=== PATIENT | female | born 1930 | race Caucasian/White ===

== ENCOUNTER 2017-06-13 18:16 | Emergency (ER) | payer MEDICARE, BC ==
[2017-06-13 19:15] LABS: #Basophils 0.1 thou/uL (0.0-0.2); #Eosinphils 0.1 thou/uL (0.0-0.7); #Lymphocytes 1.1 thou/uL (1.20-3.40); #Monocytes 0.4 thou/uL (0.11-0.59); #Neutrophils 3.4 thou/uL (1.40-6.50); %Eosinophils 1.2 % (0.0-10.0); %Lymphocytes 21.7 % (21.0-51.0); %Monocytes 7.1 % (0.0-10.0); Hematocrit 37.8 % (36.0-47.0); Mean Platelet Volume 12.6 fL (7.4-10.4); Red Blood Cell (RBC) Count 4.25 mill/uL (4.20-5.40); White Blood Cell (WBC) Count 4.9 thou/uL (4.8-10.8)
[2017-06-13 19:17] LABS: ALT (SGPT) 20 U/L (8-55); AST (SGOT) 16 U/L (5-34); Alkaline Phosphatase 48 U/L (40-150); Anion Gap 16 mmol/L (10-20); BUN (Urea Nitrogen) 25 mg/dL (9.8-20.1); Bilirubin, Total 0.3 mg/dL (0.2-1.2); Calc. Creatinine Clearance 0 mL/min (70-130); Calcium 10.9 mg/dL (7.8-10.44); Carbon Dioxide 23 mmol/L (23-31); Chloride 107 mmol/L (98-107); Estimated GFR-MDRD 40; Globulin 2.7 g/dL (2.4-3.5); Protein, Total 6.8 g/dL (6.0-8.3)
[2017-06-13 19:19] LABS: Troponin I 0.021 ng/mL (< 0.028)
[2017-06-13] MEDS ORDERED: cloNIDine 0.1 MG TAB ONE (19:44)
[2017-06-13] MEDS ORDERED: Metoprolol Tartrate 5 MG/5 ML VIAL ONE (20:03)
--- NOTE | 2017-07-03 11:39 | EKG ---
Test Reason : Blood Pressure : / mmHG Vent. Rate : 068 BPM Atrial Rate : 068 BPM P-R Int : 138 ms QRS Dur : 082 ms QT Int : 392 ms P-R-T Axes : 047 013 017 degrees QTc Int : 416 ms Normal sinus rhythm Possible Left atrial enlargement Borderline ECG Confirmed by ALFA MATTHEWS D.O. ([id number]), film and video editor KANDY FISCHER ([id number]) on 07/03/2017 11:39:18 AM Referred By: Confirmed By:ALFA MATTHEWS D.O.
== END 2017-06-13 21:20 | disposition home or self-care (01) ==
LOC: SCSER 18:16
DX: I10 Essential (primary) hypertension (principal); E05.90 Thyrotoxicosis, unspecified without thyrotoxic crisis or storm; Z79.82 Long term (current) use of aspirin; Z79.899 Other long term (current) drug therapy
CPT/HCPCS: 80053; 82553; 84484; 85025; 93005; 96374

== ENCOUNTER 2017-06-18 10:54 | Emergency (ER) | payer MEDICARE, BC | END 2017-06-18 11:55 | disposition home or self-care (01) | LOC: SCSER 10:54 | DX: I10 Essential (primary) hypertension (principal); E05.90 Thyrotoxicosis, unspecified without thyrotoxic crisis or storm; Z79.82 Long term (current) use of aspirin; Z79.899 Other long term (current) drug therapy | CPT/HCPCS: 99283 ==

== ENCOUNTER 2017-06-29 02:35 | Outpatient (CLI) | payer MEDICARE, BC | END 2017-06-29 02:36 | disposition home or self-care (01) | LOC: BICRAD 02:35 | PROVIDERS: ATTEND Internal Medicine Hematology & Oncology | DX: C65.2 Malignant neoplasm of left renal pelvis (principal) | CPT/HCPCS: 36415; 71020; 80053; 82306; 82728; 83540; 83550; 85025 ==

== ENCOUNTER 2017-09-08 10:09 | Outpatient (CLI) | payer MEDICARE, BC ==
[2017-09-08 10:16] LABS: #Basophils 0.1 thou/uL (0.0-0.2); #Eosinphils 0.1 thou/uL (0.0-0.7); #Lymphocytes 1.4 thou/uL (1.20-3.40); #Monocytes 0.3 thou/uL (0.11-0.59); %Basophils 1.9 % (0.0-1.0); %Eosinophils 1.6 % (0.0-10.0); %Lymphocytes 37.1 % (21.0-51.0); %Monocytes 8.4 % (0.0-10.0); %Neutrophils 50.9 % (42.0-75.0); Hemoglobin 12.7 g/dL (12.0-16.0); Mean Corpuscular HGB CONC 33.3 g/dL (32.0-36.0); Mean Corpuscular Hemoglobin 30.4 pg (27.0-31.0); Mean Corpuscular Volume 91.3 fl (81.0-99.0); Mean Platelet Volume 10.5 fL (7.4-10.4); Platelet Count 163 thou/uL (130-400); Red Blood Cell (RBC) Count 4.18 mill/uL (4.20-5.40); White Blood Cell (WBC) Count 3.9 thou/uL (4.8-10.8)
[2017-09-08 10:43] LABS: ALT (SGPT) 8 U/L (8-55); AST (SGOT) 8 U/L (5-34); Albumin 4.1 g/dL (3.4-4.8); Alkaline Phosphatase 44 U/L (40-150); Anion Gap 11 mmol/L (10-20); BUN (Urea Nitrogen) 63 mg/dL (9.8-20.1); Bilirubin, Total 0.3 mg/dL (0.2-1.2); Calc. Creatinine Clearance 0 mL/min (70-130); Calcium 10.5 mg/dL (7.8-10.44); Carbon Dioxide 27 mmol/L (23-31); Chloride 106 mmol/L (98-107); Estimated GFR-MDRD 24; Globulin 2.8 g/dL (2.4-3.5); Glucose 101 mg/dL (83-110); Protein, Total 6.9 g/dL (6.0-8.3); Sodium 139 mmol/L (136-145)
--- NOTE | 2017-09-08 13:50 | ULT ---
RENAL ULTRASOUND: RENAL DOPPLER: CLINICAL HISTORY: Chronic kidney disease, stage IV. Blackmon scale and Doppler color flow and spectral analysis performed. FINDINGS: Incidental note of a distended gallbladder with cholelithiasis, incompletely evaluated. There is mil d to moderate right-sided hydronephrosis. Small right renal cyst is present. Otherwise, no obvious right renal lesion is seen. The left kidney is absent. The urinary bladder is mildly distended, sow iting assessment. Right renal Doppler reveals a normal renal artery to aorta ratio, a renal artery velocity of 26 cm/s, and RI of 0.5. IMPRESSION: 1. Mild to moderate right-sided hydronephrosis of indeterminate etiology on the basis of this exam. Correlate clinically. 2. Distended gallbladder with cholelithiasis, incompletely visualized. Recommend dedicated imaging with gallbladder ultrasound to further evaluate. 3. Normal right renal Doppler exam. POS: [facility]
== END 2017-09-08 10:10 | disposition home or self-care (01) ==
LOC: ULT 10:09
PROVIDERS: ATTEND Family Medicine
DX: I12.9 Hypertensive chronic kidney disease with stage 1 through stage 4 chronic kidney disease, or unspecified chronic kidney disease (principal); N18.4 Chronic kidney disease, stage 4 (severe); N13.30 Unspecified hydronephrosis; K80.20 Calculus of gallbladder without cholecystitis without obstruction; K82.8 Other specified diseases of gallbladder; I35.8 Other nonrheumatic aortic valve disorders
CPT/HCPCS: 76775; 80053; 85025; 93976

== ENCOUNTER 2017-12-07 07:51 | Outpatient (CLI) | payer MEDICARE, BC ==
--- NOTE | 2017-12-07 18:40 | NM ---
NUCLEAR MEDICINE RENOGRAM WITH LASIX 12/07/17 HISTORY: 87-year-old female status post left nephrectomy with chronic renal insufficiency. UPJ obstruction. COMPARISON: Renal ultrasound 09/08/17. TECHNIQUE: A nuclear medicine renal scan was performed after the administration of 7.5 millicuries of technetium 99m MAG3. Lasix was also given for this examination. No uptake is seen overlying the left renal shadow as the patient is status post left nephrectomy. Upt nestor is seen overlying the right renal shadow. The right renal curve is abnormal and delayed. Time pea k is 2.4 minutes. T1/2 max could not be calculated as greater than 50% washout was not seen at the co mpletion of the study at 50 minutes. There is radiopharmaceutical seen within the kidney, ureter, and urinary bladder. No definite washout is seen. IMPRESSION: Abnormal renogram of the right kidney. There is no evidence of washout at this time to suggest a part ial obstruction. POS: [facility]
== END 2017-12-07 07:52 | disposition home or self-care (01) ==
LOC: NM 07:51
PROVIDERS: ATTEND Urology
DX: C64.2 Malignant neoplasm of left kidney, except renal pelvis (principal); I12.9 Hypertensive chronic kidney disease with stage 1 through stage 4 chronic kidney disease, or unspecified chronic kidney disease; N18.3 Chronic kidney disease, stage 3 (moderate); N13.5 Crossing vessel and stricture of ureter without hydronephrosis; N13.39 Other hydronephrosis; Q63.8 Other specified congenital malformations of kidney; R93.421 Abnormal radiologic findings on diagnostic imaging of right kidney
CPT/HCPCS: 78708; A4641; A9562

== ENCOUNTER 2017-12-08 11:34 | Outpatient (CLI) | payer MEDICARE, BC ==
[2017-12-08 12:54] LABS: Hemoglobin 11.3 g/dL (12.0-16.0); Mean Corpuscular HGB CONC 33.3 g/dL (32.0-36.0); Mean Corpuscular Hemoglobin 30.7 pg (27.0-31.0); Mean Corpuscular Volume 92.4 fl (81.0-99.0); Mean Platelet Volume 10.1 fL (7.4-10.4); Platelet Count 173 thou/uL (130-400); RBC Distribution Width 11.9 % (11.5-14.5); Red Blood Cell (RBC) Count 3.69 mill/uL (4.20-5.40); White Blood Cell (WBC) Count 4.8 thou/uL (4.8-10.8)
[2017-12-08 13:02] LABS: INR-International Normal Ratio 1.1
[2017-12-08 13:03] LABS: PTT 31.5 SEC (22.9-36.1)
[2017-12-08 13:11] LABS: Anion Gap 14 mmol/L (10-20); BUN (Urea Nitrogen) 63 mg/dL (9.8-20.1); Calc. Creatinine Clearance 0 mL/min (70-130); Calcium 10.4 mg/dL (7.8-10.44); Carbon Dioxide 25 mmol/L (23-31); Chloride 106 mmol/L (98-107); Estimated GFR-MDRD 19; Glucose 107 mg/dL (83-110); Sodium 140 mmol/L (136-145)
[2017-12-08 13:35] LABS: Bilirubin Small (Negative); Blood, Urine Negative (Negative); Clarity CLEAR (Clear); Glucose, Urine (Dipstick) Negative (Negative); Leukocyte Negative (Negative); Nitrite Negative (Negative); Protein, Urine (Dipstick) Negative (Neg-Trace); pH, Urine 5.5 (5.0-9.0)
[2017-12-08 13:43] LABS: Bacteria/HPF None Seen HPF (None Seen); Hyaline Casts/LPF 4-6 HYALINE CAST LPF (0-3 Hyaline); Pathc Cast-AUWi Flag 1.16 (0-2.49); RBC/HPF 0-3 HPF (0-3); Squamous Epithelial 0-3 HPF (0-3); WBC/HPF 0-3 HPF (0-3)
== END 2017-12-08 11:35 | disposition home or self-care (01) ==
LOC: LABBT 11:34
PROVIDERS: ATTEND Urology
DX: Z01.818 Encounter for other preprocedural examination (principal); Q63.8 Other specified congenital malformations of kidney
CPT/HCPCS: 80048; 81001; 85027; 85610; 85730; 93005; 93010

== ENCOUNTER 2017-12-10 08:02 | Outpatient (CLI) | payer MEDICARE, BC ==
[~2017-12-10 08:02] MED LIST: Furosemide 40 MG/4 ML VIAL ONE
--- NOTE | 2017-12-10 08:47 | RAD ---
CHEST 2 VIEWS: Date: 12/10/17 HISTORY: Renal cell carcinoma. Chronic renal insufficiency. COMPARISON: None. FINDINGS: Lungs are slightly hyperinflated. No focal air space consolidation, pneumothorax, or effusion. No acu te osseous abnormality. Mild degenerative disease of the glenohumeral joints bilaterally. Scarring in the lung apices. IMPRESSION: No acute intrathoracic abnormality. POS: [facility]
--- NOTE | 2017-12-10 10:15 | CT ---
CT ABDOMEN AND PELVIS WITHOUT CONTRAST: HISTORY: Hydronephrosis. Chronic kidney disease. The patient had left renal cancer and is post nephrectomy. COMPARISON: 11/11/2009 FINDINGS: Absence of oral and IV contrast reduce the sensitivity of the exam, particular for evaluation of ciro ds organs involved. The lung bases are clear. The gallbladder is distended with suggestion of gallbladder sludge versus calculi. No free air or free fluid is seen in the abdomen or pelvis. The patient is post left nephr ectomy, appendectomy, and hysterectomy. No calculi are seen in the right kidney, right ureter, or urinary bladder. No right-sided hydrourete ronephrosis is identified. A dense lesion in the right kidney likely represents a cyst. The re is colonic diverticulosis without evidence of diverticulitis. Vascular calcifications are present without evidence of aneurysmal dilatation of the abdominal aorta. There are degenerative changes in the spine. IMPRESSION: 1. Status post nephrectomy. No evidence of right-sided urinary tract calculi or obstruction. 2. Colonic diverticulosis. 3. Distended gallbladder with probable sludge/gallstones. A gallbladder ultrasound would be helpful . POS: [facility]
== END 2017-12-10 08:03 | disposition home or self-care (01) ==
LOC: CT 08:02
PROVIDERS: ATTEND Urology
DX: C64.2 Malignant neoplasm of left kidney, except renal pelvis (principal); N18.3 Chronic kidney disease, stage 3 (moderate); N13.1 Hydronephrosis with ureteral stricture, not elsewhere classified; K57.30 Diverticulosis of large intestine without perforation or abscess without bleeding; K82.8 Other specified diseases of gallbladder; Q63.8 Other specified congenital malformations of kidney; Z90.5 Acquired absence of kidney
CPT/HCPCS: 71046; 74176; J1940

== ENCOUNTER 2017-12-15 06:01 | Day surgery (SDC) | payer MEDICARE, BC ==
[2017-12-08 11:49] VITALS: BMI 22.9
[2017-12-15] MEDS ORDERED: Iothalamate Meglumine 60% 50 ML VIAL FS ONE (06:34)
[2017-12-15] MEDS ORDERED: Fentanyl 100 MCG/2 ML VIAL ONE (06:58)
[2017-12-15] MEDS ORDERED: Levofloxacin 500 mg/D5W 100 ml Premix Bag ONE (07:09)
[2017-12-15] MEDS ORDERED: Oxybutynin 5 MG TAB ONE (09:31)
[2017-12-15] MEDS ORDERED: Phenazopyridine HCl 97.5 MG TABLET ONE (09:31)
--- NOTE | 2017-12-15 09:41 | OP ---
DATE OF PROCEDURE: 12/15/2017 PREOPERATIVE DIAGNOSES: 1. A 87-year-old female with history of left radical nephrectomy at [facility] in 2009. 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 2. History of right hydronephrosis, r/o R UPJ 3. Renal insufficiency. POSTOPERATIVE DIAGNOSES: 1. A 87-year-old female with history of left radical nephrectomy at [facility] in 2009. 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 2. History of right hydronephrosis, R/o R UPJ 3. Renal insufficiency. PROCEDURES: Cystoscopy, right retrograde, 6 x 24 double-J ureteral stent placement, balloon dilation of the distal intramural ureter, balloon dilation of the right UPJ, flexible ureteroscopy. SURGEON: Gisele Smith D.O. ANESTHESIA: General. COMPLICATIONS: None apparent. DISPOSITION: To recovery room in stable condition. INTRAOPERATIVE FINDINGS: 1. Bladder is grossly unremarkable. 2. left UO remains in situ status post left nephrectomy, right UO in normal orthotopic position. 3. Right retrograde pyelogram demonstrating dependent insertion of the UPJ with subtle narrowing of the proximal ureter UPJ approximately 2 cm in length. 4. Retrograde pyelogram does demonstrate efflux of urine at 45seconds, 1 minute , 2 minutes, demonstrating delayed excretion; however, no high-grade obstruction per se. 5. Prior renal scan demonstrated partial obstruction and T1 half could not be calculated as greater than 50% at one shot was not seen at 50 minutes. INDICATIONS FOR THE PROCEDURE AND HISTORY: Ms. Burdick is a pleasant 85-year- old female with history of left renal cell carcinoma, status post left hand- assisted nephrectomy at [facility] [address] Dejesus. She was referred to me recently by Nephrology due to worsening renal insufficiency with renal ultrasound demonstrating moderate right hydronephrosis. Upon review of records , she does have chronic right hydronephrosis dating back to [id number] and imaging at [facility]. She has been asymptomatic with no evidence of flank pain. Her baseline creatinine has been 1.1-1.5; however, this year, beginning in August, her creatinine began to be elevated to 2.0, currently 2.4. Restaging CT demonstrated no obvious hydronephrosis, but there is an extrarenal pelvic component with nondilation of the ureter. Given prior imaging with similar findings demonstrating extrarenal pelvis with [id number] right hydronephrosis with Lasix renal scan demonstrating delayed excretion and solitary kidney, advised regarding retrograde, balloon dilatation, diagnostic ureteroscopy. The patient has been fully informed regarding alternative options such as endopyelotomy, dismembered pyeloplasty. She desired to proceed with diagnostic ureteroscopy and trial of balloon dilatation. The patient was fully informed regarding risks and complications including, but not limited to, bleeding, pain, infection, injury to adjacent organs, injury to ureter, bladder , kidney, sepsis, stricture formation, renal failure. All questions were answered to her satisfaction, she desired to proceed. DESCRIPTION OF THE PROCEDURE: After an informed consent is signed, the patient is taken to the operating room, placed in a dorsal lithotomy position with the genital area prepped and draped in the usual surgical sterile fashion. A 21- [place]e cystoscope was utilized for cystoscopy which demonstrated normal bladder mucosa. The left UO remains in situ status post left nephrectomy. Right UO was in normal anatomical position. We utilized a 5-Senegalese open-ended catheter to perform a retrograde pyelogram which demonstrated normal mid to distal ureter. Opacifying the right collecting system, there is a component of extra renal pelvis with mild clubbing of the calices. At the level of the UPJ, there is a dependent insertion of the UPJ with subtle narrowing of the UPJ segment approximately 2 cm in length. We filled the collecting system with contrast and watched for efflux. There was adequate efflux at 45seconds, 60 seconds, minute and 2 minutes. We were able to see the contrast coming down the course of the ureter and effluxing through the ureter orifice. We then passed a 0.35 sensor wire. There was some resistance at the level of the UPJ; however, this was negotiated into the right upper pole without difficulty. At this time, we passed 12-Senegalese 2 cm [employer] dilator and dilated the intramural ureter. Subsequently, a 10-[place]e dual-lumen access sheath was able to be passed to the level of the proximal ureter. With the wire in situ, the ureter did have more straight insertion in the towards the medial aspect, a second safety wire, 0.35 Super Stiff was able to be passed to the level of the right upper pole. We passed a flexible ureteroscope. Upon engaging the area in question, there appeared to be narrowing that was annular in nature. I was unable to pass the flexible ureteroscope. I tried to utilize a passport dilator under direct visualization to dilate the UPJ; however, we had difficulty passing the proximal coil as there was tortuosity and corkscrewing of the proximal ureter. Therefore, I did not pursue dilating it in such manner. As I do have a wire in situ, we passed the [employer] balloon dilator and she was dilated under fluoroscopic guidance. The proximal portion of the balloon dilator radial marker was seen in the renal pelvis. Distal marker with adequate coverage of the length of the ureteral narrowing in question. Balloon dilatation was performed with 20 atmospheric pressure. Subsequently, the balloon was completely deflated. We attempted to pass the ureteroscope over a guidewire to restage the area; however, there was difficulty passing the safety wire subsequently. Therefore, decision was made to leave a stent as she was dilated successfully. There was some pyelovenous backflow with subsequent retrograde. A 6 x 24 double-J ureteral stent was passed without difficulty with proximal coil in the upper pole and distal coil with adequate redundancy in the bladder. Distal tail was left in situ. She tolerated the procedure well. She will follow up with me in the next week with KUB, BMP. I will leave the stent in situ for minimum of 3-4 weeks. I will discuss with patient regarding repeat exam under anesthesia with retrograde prior to her stent pull as I am unable to perform an IVP due to renal insufficiency. We will discuss with patient regarding repeat exam under anesthesia for ureteroscopic evaluation of the area in question as we were unable to perform that today. Medication list demonstrates she is on an angiotensin 2 inhibitor, we will discuss with her technology and engineering teacher if alternative medication can be provided as she does have baseline renal insufficiency. TEA
--- NOTE | 2017-12-15 10:33 | RAD ---
RETROGRADE PYELOGRAM: CKD Hydronephrosis FINDINGS: No evidence for ureteral calculus. Dilatation of the right upper renal pelvis with decreased drainag e on the post drainage studies. Instrumentation of the upper left ureter and ureteropelvic junction is performed. IMPRESSION: Dilatation of the right upper renal collecting system and renal pelvis, possibly related to UPJ obstr uction, mild. No overt calculus. Continued short-term followup. POS: [facility]
[2017-12-15] MEDS ORDERED: Dexamethasone 20 MG/5 ML VIAL ONE (14:16)
[2017-12-15] MEDS ORDERED: Ondansetron HCl/PF 4 MG/2 ML Vial ONE (14:16)
[2017-12-15] MEDS ORDERED: Glycopyrrolate 0.2 MG/ML 5 ML SYRINGE ONE (14:16)
[2017-12-15] MEDS ORDERED: Lidocaine 1% PF 5 ML VIAL ONE (14:16)
[2017-12-15] MEDS ORDERED: PROPOFOL 200 MG/20 ML VIAL ONE (14:16)
[2017-12-15] MEDS ORDERED: ePHEDrine/0.9% NaCl/PF SYRINGE 50 mg/10 ml ONE (14:16)
== END 2017-12-15 11:10 | disposition home or self-care (01) ==
LOC: SDC 06:01
PROVIDERS: ATTEND Urology
PROC: 0T768DZ Dilation of Right Ureter with Intraluminal Device, Via Natural or Artificial Opening Endoscopic (ICD-10-PCS; principal; 2017-12-15)
DX: N13.1 Hydronephrosis with ureteral stricture, not elsewhere classified (principal); I12.9 Hypertensive chronic kidney disease with stage 1 through stage 4 chronic kidney disease, or unspecified chronic kidney disease; N18.3 Chronic kidney disease, stage 3 (moderate); E78.2 Mixed hyperlipidemia; E21.0 Primary hyperparathyroidism; F41.9 Anxiety disorder, unspecified; M81.8 Other osteoporosis without current pathological fracture; Z90.5 Acquired absence of kidney; Z88.8 Allergy status to other drugs, medicaments and biological substances; Z79.899 Other long term (current) drug therapy
CPT/HCPCS: 52332; 52351; 74420; C1758; C1769; J1100; J1956; J2001; J2405; J2704; J3010; Q9961

== ENCOUNTER 2017-12-22 09:08 | Outpatient (CLI) | payer MEDICARE, BC ==
--- NOTE | 2017-12-22 10:22 | RAD ---
KUB: HISTORY: Placement or ureteral stent. Dilatation of right collecting system. COMPARISON: Retrograde examination from 12/15/[address] study from 12/10/2017. FINDINGS: The bowel gas pattern appears nonobstructed. A right ureteral stent is in position. No renal or ure teral calculi are identified. IMPRESSION: 1. Right ureteral stent, which appears to be in fairly satisfactory position. 2. No calculi demonstrated. POS: [facility]
== END 2017-12-22 09:09 | disposition home or self-care (01) ==
LOC: RAD 09:08
PROVIDERS: ATTEND Urology
DX: R93.41 Abnormal radiologic findings on diagnostic imaging of renal pelvis, ureter, or bladder (principal); Z96.0 Presence of urogenital implants
CPT/HCPCS: 74018

== ENCOUNTER 2018-01-20 11:51 | Outpatient (CLI) | payer MEDICARE, BC ==
--- NOTE | 2018-01-20 14:44 | RAD ---
KUB: DATE: 01/20/18. PROVIDED CLINICAL HISTORY: EPJ obstruction. FINDINGS: The abdominal bowel gas pattern is nonspecific. Conspicuous colonic fecal retention suggests constip ation. Right-sided ureteral stent is again noted in similar position. Calcifications overlying the pelvis are again seen, stable. IMPRESSION: Stable exam. POS: [facility]
== END 2018-01-20 11:52 | disposition home or self-care (01) ==
LOC: RAD 11:51
PROVIDERS: ATTEND Urology
DX: N13.5 Crossing vessel and stricture of ureter without hydronephrosis (principal)
CPT/HCPCS: 36415; 74018; 80048; 80061; 82306; 83970; 84443; 84450; 84460; 85027; 85652

== ENCOUNTER 2018-02-21 13:06 | Outpatient (CLI) | payer MEDICARE, BC ==
[2018-02-21 14:14] LABS: Hemoglobin 11.6 g/dL (12.0-16.0); Mean Corpuscular HGB CONC 33.7 g/dL (32.0-36.0); Mean Corpuscular Volume 92.2 fL (78.0-98.0); Mean Platelet Volume 9.6 fL (7.4-10.4); Platelet Count 175 thou/uL (130-400); RBC Distribution Width 11.8 % (11.5-14.5); Red Blood Cell (RBC) Count 3.72 mill/uL (4.20-5.40); White Blood Cell (WBC) Count 4.4 thou/uL (4.8-10.8)
[2018-02-21 14:21] LABS: INR-International Normal Ratio 1.1; PTT 28.9 SEC (22.9-36.1); Prothrombin Time 14.1 SEC (12.0-14.7)
[2018-02-21 14:22] LABS: Bilirubin Negative (Negative); Blood, Urine Moderate (Negative); Clarity CLOUDY (Clear); Glucose, Urine (Dipstick) Negative (Negative); Leukocyte Moderate (Negative); Nitrite Positive (Negative); Protein, Urine (Dipstick) 100 mg/dL (Neg-Trace); Urobilinogen 0.2 mg/dL (0.2-1.0); pH, Urine 5.5 (5.0-9.0)
[2018-02-21 14:27] LABS: Bacteria/HPF None Seen HPF (None Seen); Hyaline Casts/LPF 4-6 HYALINE CAST LPF (0-3 Hyaline); Pathc Cast-AUWi Flag 0.87 (0-2.49); WBC/HPF 21-50 HPF (0-3)
[2018-02-21 14:34] LABS: Yeast-AUWi Flag 63.5 (0-25.0)
[2018-02-21 14:40] LABS: Anion Gap 7 mmol/L (10-20); BUN (Urea Nitrogen) 29 mg/dL (9.8-20.1); Calc. Creatinine Clearance 0 mL/min (70-130); Calcium 10.4 mg/dL (7.8-10.44); Carbon Dioxide 26 mmol/L (23-31); Chloride 110 mmol/L (98-107); Estimated GFR-MDRD 35; Glucose 96 mg/dL (83-110); Potassium 4.4 mmol/L (3.5-5.1); Sodium 139 mmol/L (136-145)
[2018-02-21 14:50] LABS: Renal Epithelial 0-3 HPF (0-3); Transitional Epithelial 0-3 HPF (0-3); Yeast-All Forms None Seen HPF (None Seen)
--- NOTE | 2018-02-22 07:08 | EKG ---
Test Reason : Blood Pressure : / mmHG Vent. Rate : 057 BPM Atrial Rate : 057 BPM P-R Int : 134 ms QRS Dur : 078 ms QT Int : 416 ms P-R-T Axes : 083 040 036 degrees QTc Int : 404 ms Sinus bradycardia with artifact in baseline in Leads I, II, III. Possible Left atrial enlargement RSR' or QR pattern in V1 suggests right ventricular conduction delay Low voltage QRS Borderline ECG When compared with ECG of 08-DEC-2017 12:28, No significant change was found Confirmed by ASHLEIGH GONZALEZ ([id number]) on 02/22/2018 7:07:46 AM Referred By: TARSHA Confirmed By:ASHLEIGH GONZALEZ
== END 2018-02-21 13:07 | disposition home or self-care (01) ==
LOC: LABBT 13:06
PROVIDERS: ATTEND Urology
DX: Z01.812 Encounter for preprocedural laboratory examination (principal); N13.30 Unspecified hydronephrosis
CPT/HCPCS: 80048; 81001; 85027; 85610; 85730; 87077; 87086; 87186; 93005; 93010

== ENCOUNTER 2018-03-17 15:01 | Outpatient (CLI) | payer MEDICARE, BC | END 2018-03-17 15:02 | disposition home or self-care (01) | LOC: BICMAMMO 15:01 | PROVIDERS: ATTEND Internal Medicine Hematology & Oncology | DX: Z12.31 Encounter for screening mammogram for malignant neoplasm of breast (principal); Z80.3 Family history of malignant neoplasm of breast; Z85.528 Personal history of other malignant neoplasm of kidney | CPT/HCPCS: 77063; 77067 ==

== ENCOUNTER 2018-05-03 16:28 | Emergency (ER) | payer MEDICARE, BC | END 2018-05-03 16:58 | disposition home or self-care (01) | LOC: SCSER 16:28 | DX: I10 Essential (primary) hypertension (principal); E03.9 Hypothyroidism, unspecified; Z79.899 Other long term (current) drug therapy | CPT/HCPCS: 93005 ==

== ENCOUNTER 2018-08-06 20:40 | Emergency (ER) | payer MEDICARE, BC ==
[2018-08-06 21:22] LABS: #Basophils 0.1 thou/uL (0.0-0.2); #Lymphocytes 1.1 thou/uL (1.20-3.40); #Monocytes 0.3 thou/uL (0.11-0.59); #Neutrophils 2.6 thou/uL (1.40-6.50); %Basophils 1.2 % (0.0-1.0); %Eosinophils 1.1 % (0.0-10.0); %Lymphocytes 25.7 % (21.0-51.0); %Monocytes 8.1 % (0.0-10.0); %Neutrophils 63.9 % (42.0-75.0); Hemoglobin 11.7 g/dL (12.0-16.0); Mean Corpuscular Hemoglobin 29.1 pg (27.0-31.0); Mean Corpuscular Volume 88.4 fL (78.0-98.0); Mean Platelet Volume 10.6 fL (7.4-10.4); Platelet Count 167 thou/uL (130-400); RBC Distribution Width 12.5 % (11.5-14.5); Red Blood Cell (RBC) Count 4.03 mill/uL (4.20-5.40); White Blood Cell (WBC) Count 4.1 thou/uL (4.8-10.8)
[2018-08-06 21:28] LABS: Anion Gap 13 mmol/L (10-20); BUN (Urea Nitrogen) 26 mg/dL (9.8-20.1); Calc. Creatinine Clearance 0 mL/min (70-130); Calcium 10.5 mg/dL (7.8-10.44); Carbon Dioxide 25 mmol/L (23-31); Chloride 108 mmol/L (98-107); Estimated GFR-MDRD 36; Glucose 106 mg/dL (83-110); Potassium 4.4 mmol/L (3.5-5.1); Sodium 142 mmol/L (136-145)
== END 2018-08-06 21:44 | disposition home or self-care (01) ==
LOC: SCSER 20:40
DX: I10 Essential (primary) hypertension (principal); E05.90 Thyrotoxicosis, unspecified without thyrotoxic crisis or storm; Z79.899 Other long term (current) drug therapy
CPT/HCPCS: 80048; 84484; 85025; 93005

== ENCOUNTER 2018-10-03 09:55 | Outpatient (CLI) | payer MEDICARE, BC ==
--- NOTE | 2018-10-03 12:00 | RAD ---
FRONTAL AND LATERAL IMAGING CHEST: DATE: 10/03/2018. COMPARISON: None. HISTORY: Renal cell carcinoma of the left kidney. FINDINGS: No pneumothorax, pleural fluid, lobar consolidation, or alveolar edema. Heart and mediastinal contou rs are unremarkable. There is atherosclerotic calcification in the aortic arch. There is mild incre ased linear interstitial density with pulmonary hyperinflation suggesting air trapping, stable. IMPRESSION: Stable appearance of the chest - no acute findings. POS: [facility]
== END 2018-10-03 09:56 | disposition home or self-care (01) ==
LOC: RAD 09:55
PROVIDERS: ATTEND Urology
DX: C64.2 Malignant neoplasm of left kidney, except renal pelvis (principal); N18.3 Chronic kidney disease, stage 3 (moderate); N13.5 Crossing vessel and stricture of ureter without hydronephrosis
CPT/HCPCS: 36415; 71046; 80053; 81001; 87086

== ENCOUNTER 2019-04-20 15:02 | Outpatient (CLI) | payer MEDICARE, BC ==
--- NOTE | 2019-04-20 16:24 | MMO ---
Bilateral MAMMO Bilat Screen DDI+ANDRZEJ. CLINICAL HISTORY: Patient is 88 years old and is seen for screening. The patient has no family history of breast cancer. The patient has a history of kidney cancer at age 80. VIEWS: The views performed were: bilateral craniocaudal with tomosynthesis and bilateral mediolateral oblique with tomosynthesis. FILMS COMPARED: The present examination has been compared to prior imaging studies performed at [facility] on 10/16/2014, 02/12/2016, 02/19/2017 and 03/17/2018. This study has been interpreted with the assistance of computer-aided detection. MAMMOGRAM FINDINGS: There are scattered fibroglandular densities. Benign calcifications are noted bilaterally. There are no suspicious masses, suspicious calcifications, or new areas of architectural distortion. IMPRESSION: THERE IS NO MAMMOGRAPHIC EVIDENCE OF MALIGNANCY. A ROUTINE FOLLOW-UP MAMMOGRAM IN 1 YEAR IS RECOMMENDED. THE RESULTS OF THIS EXAM WERE SENT TO THE PATIENT. ACR BI-RADS Category 2 - Benign finding MAMMOGRAPHY NOTE: 1. A negative mammogram report should not delay a biopsy if a dominant of clinically suspicious mass is present. 2. Approximately 10% to 15% of breast cancers are not detected by mammography. 3. Adenosis and dense breasts may obscure an underlying neoplasm. Reported by: TALHA YANG MD Electonically Signed: [id number]
== END 2019-04-20 15:03 | disposition home or self-care (01) ==
LOC: BICMAMMO 15:02
PROVIDERS: ATTEND Internal Medicine Hematology & Oncology
DX: Z12.31 Encounter for screening mammogram for malignant neoplasm of breast (principal); Z85.528 Personal history of other malignant neoplasm of kidney
CPT/HCPCS: 77063; 77067

== ENCOUNTER 2019-06-14 14:41 | Outpatient (CLI) | payer MEDICARE, BC ==
--- NOTE | 2019-06-14 16:41 | RAD ---
CHEST TWO VIEWS: HISTORY: Renal cell carcinoma left kidney. COMPARISON: 10/03/2018 FINDINGS: The lungs appear clear of infiltrate. Interstitial markings are upper normal but are probably stable, given differences in technique. Heart size is upper normal and stable. Aortic calcification is again noted. Osseous structures are unremarkable with mild degenerative change. IMPRESSION: Stable chest findings. POS: [facility]
== END 2019-06-14 14:42 | disposition home or self-care (01) ==
LOC: BICRAD 14:41
PROVIDERS: ATTEND Internal Medicine Hematology & Oncology
DX: C65.2 Malignant neoplasm of left renal pelvis (principal)
CPT/HCPCS: 71046

== ENCOUNTER 2019-07-11 09:41 | Emergency (ER) | payer MEDICARE, BC ==
[2019-07-11 11:35] LABS: #Eosinphils 0.1 thou/uL (0.0-0.7); #Lymphocytes 0.7 thou/uL (1.20-3.40); #Monocytes 0.5 thou/uL (0.11-0.59); #Neutrophils 3.3 thou/uL (1.40-6.50); %Basophils 0.4 % (0.0-1.0); %Eosinophils 1.5 % (0.0-10.0); %Lymphocytes 14.9 % (21.0-51.0); %Neutrophils 73.3 % (42.0-75.0); Hemoglobin 11.4 g/dL (12.0-16.0); Mean Corpuscular HGB CONC 33.3 g/dL (32.0-36.0); Mean Corpuscular Hemoglobin 30.5 pg (27.0-31.0); Mean Corpuscular Volume 91.5 fL (78.0-98.0); Mean Platelet Volume 9.6 fL (7.4-10.4); Platelet Count 235 thou/uL (130-400); RBC Distribution Width 12.6 % (11.5-14.5); Red Blood Cell (RBC) Count 3.75 mill/uL (4.20-5.40); White Blood Cell (WBC) Count 4.6 thou/uL (4.8-10.8)
[2019-07-11 12:00] LABS: ALT (SGPT) 237 U/L (8-55); AST (SGOT) 67 U/L (5-34); Albumin 3.6 g/dL (3.4-4.8); Alkaline Phosphatase 782 U/L (40-110); Anion Gap 14 mmol/L (10-20); BUN (Urea Nitrogen) 31 mg/dL (9.8-20.1); Bilirubin, Total 0.6 mg/dL (0.2-1.2); Calc. Creatinine Clearance 0 mL/min (70-130); Calcium 10.8 mg/dL (7.8-10.44); Carbon Dioxide 23 mmol/L (23-31); Chloride 105 mmol/L (98-107); Estimated GFR-MDRD 29; Globulin 2.6 g/dL (2.4-3.5); Glucose 116 mg/dL (83-110); Potassium 4.6 mmol/L (3.5-5.1); Protein, Total 6.2 g/dL (6.0-8.3); Sodium 137 mmol/L (136-145)
== END 2019-07-11 13:16 | disposition home or self-care (01) ==
LOC: ERS 09:41
DX: R00.2 Palpitations (principal); I10 Essential (primary) hypertension; Z79.899 Other long term (current) drug therapy
CPT/HCPCS: 36415; 80053; 84443; 84484; 85025; 93005

== ENCOUNTER 2019-07-19 10:25 | Inpatient (IN) | payer MEDICARE, BC ==
[2019-07-18 17:16] VITALS: BMI 23.1
[~2019-07-19 10:25] MED LIST changes: -Furosemide 40 MG/4 ML VIAL ONE; +Ondansetron PF 4 MG/2 ML Vial ONE; +PROPOFOL 200 MG/20 ML VIAL ONE; +Succinylcholine Chloride 20 MG/ML 10 ml SYRINGE FS ONE
[2019-07-19] MEDS ORDERED: Fentanyl 100 MCG/2 ML VIAL ONE ×3 (13:08→14:43)
[2019-07-19] MEDS ORDERED: Morphine 4 MG/ML VIAL ONE (14:18)
[2019-07-19] MEDS ORDERED: Senokot S 8.6-50 MG TAB PO PRN (14:31)
[2019-07-19] MEDS ORDERED: Ondansetron PF 4 MG/2 ML Vial IVP PRN (14:31)
[2019-07-19] MEDS ORDERED: Promethazine HCl 25 MG/ML VIAL SLOW IVP PRN (14:42)
[2019-07-19] MEDS ORDERED: Morphine Sulfate 2 MG/ML SYRINGE SLOW IVP PRN (14:42)
[2019-07-19] MEDS ORDERED: Promethazine HCl 25 MG/ML VIAL IM PRN (14:42)
[2019-07-19] MEDS ORDERED: Ondansetron HCl/PF 4 MG/2 ML Vial IVP PRN (14:42)
[2019-07-19] MEDS ORDERED: Ibuprofen 200 MG TAB PO SCH ×2 (14:45→22:00)
--- NOTE | 2019-07-19 14:48 | RAD ---
Exam: Chest one view HISTORY:Pericardial window Comparison: 06/14/2019 FINDINGS: Cardiac silhouette:Normal cardiac silhouette. There does appear to be a catheter projecting over the cardiac silhouette, compatible with patient's history of pericardial window. Aorta: Atherosclerosis of the aortic knob Pulmonary vessels: Normal Costophrenic angles: No obvious pleural effusion. LUNGS: Chronic lung parenchymal changes. No consolidation or mass Pneumothorax: None Osseous abnormalities: None IMPRESSION: Catheter projects over the left cardiac silhouette compatible with patient's reported his tory of pericardial window.
[2019-07-19] MEDS ORDERED: Promethazine HCl 25 MG/ML VIAL ONE (14:54)
[2019-07-19 14:55] LABS: RBC Count-Automated (BF) 396996 /cumm; WBC/Nucleated-Auto (BF) 21659 uL
[2019-07-19 15:21] LABS: BF Color Red; Body Fluid Source Pericardial Fluid; Clarity Cloudy/Turbid (Clear); Tube # EDTA
[2019-07-19 15:42] LABS: Cell Count Non Hematic 94 %; Lymphocytes 6 %
[2019-07-19] MEDS: cloNIDine 0.1 MG TAB PO SCH (21:33)
[2019-07-20] MEDS: Enoxaparin Sodium 30 MG/0.3 ML SYRINGE SC SCH (08:08)
[2019-07-20] MEDS: cloNIDine 0.1 MG TAB PO SCH (08:09)
--- NOTE | 2019-07-20 08:48 | OP ---
DATE OF PROCEDURE: 07/19/2019 PREOPERATIVE DIAGNOSIS: Pericardial effusion. POSTOPERATIVE DIAGNOSIS: Pericardial effusion. PROCEDURE PERFORMED: Subxiphoid pericardial window. ANESTHESIA: General. ESTIMATED BLOOD LOSS: Minimal. FINDINGS: The patient had about 450 to 500 mL of bloody fluid. There was a granular appearance to the cardiac surface, but the pericardial surface in the parietal pericardium appeared smooth. DESCRIPTION OF PROCEDURE: After adequate anesthesia had been obtained, an incision was made over the xiphoid process and carried down to the xiphoid process, which was divided in the midline. Blunt dissection was used to get up to the level of the diaphragm and a Kittner was then used to retract to allow exposure of the pericardium. The Kittner penetrated the thin peritoneal cavity exposing the dome of the liver. Further dissection allowed entrance into the pericardium, where pericardial biopsy was obtained after fluid was removed for specimens. Following this, a 19 Don drain was placed into the pericardial cavity through a separate incision. The fascia was then closed as were the subcutaneous tissue and skin. The patient was to be taken to the recovery room. Job ID: [id number]
[2019-07-20] MEDS: traMADol HCl 50 MG TAB PO PRN (20:34)
[2019-07-20] MEDS ORDERED: Melatonin 3 MG TAB PO PRN (23:19)
[2019-07-21] MEDS: Acetaminophen 325 MG TAB PO PRN ×2 (02:01→13:59)
[2019-07-21] MEDS: Enoxaparin Sodium 30 MG/0.3 ML SYRINGE SC SCH (08:42)
[2019-07-21] MEDS: traMADol HCl 50 MG TAB PO PRN (14:00)
[2019-07-21] MEDS ORDERED: cloNIDine 0.2mg/24 Hour PATCH TD SCH (14:15)
[2019-07-21] MEDS ORDERED: traMADol HCl 50 MG TAB PO PRN (14:46)
--- NOTE | 2019-07-21 16:43 | ULT ---
BILATERAL LOWER EXTREMITY VENOUS ULTRASOUND WITH DOPPLER: 07/21/19 HISTORY: Pain. Lymphoma. COMPARISON: None. TECHNIQUE: Blackmon scale, color flow, Doppler imaging with spectral waveform analysis performed in the left and rig ht lower extremity venous system. FINDINGS: Bilaterally, there is compressibility, presence of flow and augmentation in the common femoral vein, femoral vein and popliteal vein. There is flow in bilateral greater saphenous vein, profunda femoral vein, and posterior tibial veins. IMPRESSION: No evidence of thrombus in the left or right lower extremity deep venous system. POS: [facility]
[2019-07-21] MEDS ORDERED: Gabapentin 300 MG CAP PO SCH (21:00)
[2019-07-22 07:19] VITALS: BP 159/86; TEMP 98.5
[2019-07-22] MEDS: Enoxaparin Sodium 30 MG/0.3 ML SYRINGE SC SCH (09:19)
--- NOTE | 2019-07-22 11:42 | DIS ---
DATE OF ADMISSION: 07/19/2019 DATE OF DISCHARGE: 07/22/2019 This is an 89-year-old female admitted for pericardial window. This was accomplished, however, pathology returned consistent with a B-cell lymphoma. Dr. Mcgee was consulted and at her recommendation, the drain tube was left in place until further treatment could be begun. Otherwise, she did well with some complaints of leg pain with palpable pulses and a negative venous ultrasound. She was given gabapentin 300 mg one night with good relief, although was somewhat groggy the next day, so she will receive a prescription for 100 mg to try one at night. Her output on her drain has gone from 160 for 24 hours to 85 and now to 40. Discharge and followup instructions have been given. Job ID: [id number]
== END 2019-07-22 11:25 | disposition home or self-care (01) | DRG 271 ==
LOC: SURG A 10:25 → SJJU 16:43
PROVIDERS: ADMIT Thoracic Surgery (Cardiothoracic Vascular Surgery); ATTEND Thoracic Surgery (Cardiothoracic Vascular Surgery)
PROC: 0W9D00Z Drainage of Pericardial Cavity with Drainage Device, Open Approach (ICD-10-PCS; principal; 2019-07-19)
DX: I31.3 Pericardial effusion (noninflammatory) (principal); C85.10 Unspecified B-cell lymphoma, unspecified site; I10 Essential (primary) hypertension; E21.3 Hyperparathyroidism, unspecified; Z90.710 Acquired absence of both cervix and uterus; Z88.8 Allergy status to other drugs, medicaments and biological substances
CPT/HCPCS: 36415; 71045; 80076; 84157; 85060; 86644; 86645; 86663; 86664; 86665; 88112; 88184; 88237; 88264; 88280; 88305; 88341; 88342; 88360; 88365; 89051; 93970; J0690; J1650; J2270; J2405; J2550; J2704; J3010

== ENCOUNTER 2019-07-27 09:00 | Outpatient (CLI) | payer MEDICARE, BC ==
--- NOTE | 2019-07-27 11:50 | PET ---
EXAM: PET/CT HISTORY: Large B-cell lymphoma. Exam requested for initial staging. Pathologic diagnosis was made on a pericar dial biopsy on 07/19/2019. TECHNIQUE: PET scanning with CT attenuation correction was performed from the base of the brain to the proximal thighs following the intravenous administration of 12.4 millicuries [id number]. COMPARISON: None. CORRELATION: CT stone protocol of 12/10/2017 FINDINGS: No angelia hypermetabolism is seen in the neck, mediastinum, hilar regions, axillary, abdomen, pelvis o r inguinal regions. No hypermetabolic pulmonary nodules, liver or skeletal lesions are seen. There is increased FDG localization in the adrenal glands bilaterally with SUVs of 4.4 on the right a nd 4.1 in the left. Uptake appears to be diffuse and likely due to hyperplasia or an infiltrative process. There is increased FDG localization in the gastric wall thickening noted on the CT scan used for atte nuation correction with an SUV of 4.5. The CT scan also demonstrates soft tissue density in the presacral space with increased FDG localization and an SUV of 3.5. There is physiologic activity in the GI and tracts and the visualized portions of the brain. The CT scan used for attenuation correction demonstrates no evidence of ascites. There are bilateral pleural effusions, right larger than left. A pericardial drain is present. The patient is status post left nephrectomy. There is colonic diverticulosis. IMPRESSION: 1. No evidence of hypermetabolic lymph nodes. 2. Increased uptake in the thickened gastric wall should be evaluated with endoscopy. 3. Uptake in the adrenal glands may be due to an infiltrative process or hyperplasia. 4. Uptake in the presacral space is nonspecific and is generally seen as a result of postoperative or post radiation change.
[2019-07-27 22:29] LABS: ALT (SGPT) 62 U/L (8-55); AST (SGOT) 35 U/L (5-34); Albumin 3.4 g/dL (3.4-4.8); Alkaline Phosphatase 375 U/L (40-110); Anion Gap 20 mmol/L (10-20); BUN (Urea Nitrogen) 52 mg/dL (9.8-20.1); Bilirubin, Direct 0.2 mg/dL (0.1-0.3); Bilirubin, Total 0.4 mg/dL (0.2-1.2); Calc. Creatinine Clearance 0 mL/min (70-130); Calcium 8.5 mg/dL (7.8-10.44); Carbon Dioxide 15 mmol/L (23-31); Chloride 105 mmol/L (98-107); Estimated GFR-MDRD 36; Globulin 1.9 g/dL (2.4-3.5); Glucose 106 mg/dL (83-110); LDH 588 U/L (125-220); Phosphorus 8.8 mg/dL (2.3-4.7); Potassium 5.3 mmol/L (3.5-5.1); Protein, Total 5.3 g/dL (6.0-8.3); Sodium 135 mmol/L (136-145); Uric Acid 12.7 mg/dL (2.6-6.0)
== END 2019-07-27 09:01 | disposition home or self-care (01) ==
LOC: PET 09:00
PROVIDERS: ATTEND Internal Medicine Hematology & Oncology
DX: C83.30 Diffuse large B-cell lymphoma, unspecified site (principal); Z98.890 Other specified postprocedural states; Z92.3 Personal history of irradiation
CPT/HCPCS: 78815; 80053; 82248; 83615; 84100; 84550; A9552

== ENCOUNTER 2019-07-28 16:17 | Inpatient (IN) | payer MEDICARE, BC ==
[2019-07-28 18:16] VITALS: BMI 22.3
[2019-07-28] MEDS: Sodium Chloride 0.9% 1,000 ML IV SCH (19:02)
[2019-07-28] MEDS ORDERED: RASBURICASE IVPB SCH (20:00)
[2019-07-28] MEDS ORDERED: SODIUM CHLORIDE 0.9% IVPB SCH (20:00)
[2019-07-28] MEDS ORDERED: Bisacodyl 10 MG SUPP PR PRN (20:53)
[2019-07-28] MEDS ORDERED: Bisacodyl 5 MG TAB PO PRN (20:53)
[2019-07-28] MEDS ORDERED: Promethazine HCl 12.5 MG in Sodium Chloride 0.9% 50 ML IVPB PRN (20:57)
[2019-07-28] MEDS ORDERED: Morphine 2 MG/ML SYRINGE SLOW IVP PRN (20:57)
[2019-07-28] MEDS ORDERED: Ondansetron PF 4 MG/2 ML Vial IVP PRN (20:57)
[2019-07-28] MEDS ORDERED: Furosemide 40 MG/4 ML VIAL SLOW IVP SCH (21:00)
[2019-07-28] MEDS ORDERED: cloNIDine 0.2mg/24 Hour PATCH TD SCH (21:00)
--- NOTE | 2019-07-28 21:00 | PDOC.HHP ---
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 Patient complains of pedal edema, takes lasix daily usually 20mg PO is on 100cc/hr ivf for tls related concerns. otherwise has no complaints. pericardial drain placed by Dr Garcia on , records reviewed. no chest pain, shortness of breath, dizziness. She was supposed to take allopurinol at home but has been too busy and forgot. Hospitalist ROS - Review of Systems Constitutional: denies: fever, chills, sweats, weakness, malaise, other Eyes: denies: pain, vision change, conjunctivae inflammation, eyelid inflammation, redness, other ENT: denies: ear pain, ear discharge, nose pain, nose discharge, nose congestion , mouth pain, mouth swelling, throat pain, throat swelling, other Respiratory: denies: cough, dry, shortness of breath, hemoptysis, SOB with excertion, pleuritic pain, sputum, wheezing, other Cardiovascular: reports: edema. denies: chest pain, palpitations Gastrointestinal: denies: nausea, vomiting, abdominal pain, diarrhea, constipation, melena, hematochezia, other Genitourinary: denies: dysuria, frequency, incontinence, hematuria, retention, other Musculoskeletal: denies: neck pain, shoulder pain, arm pain, back pain, hand pain, leg pain, foot pain, other Skin: denies: rash, lesions, johann, bruising, other Neurological: denies: weakness, numbness, incoordination, change in speech, confusion, seizures, other All other systems reviewed; all pertinent +/- noted in HPI/Subj - Medication Medications: Active Medications Generic Name Dose Route Start Last Admin Trade Name Freq PRN Reason Stop Dose Admin Sodium Chloride 1,000 mls @ 100 mls/hr 07/28/19 18:00 07/28/19 19:02 Normal Saline 0.9% IV 1,000 mls .Q10H BRIDGER Administration Hospitalist History - Past Medical History Other Medical History: HTN, hyperparathyroidism, newly diagnosed large b cell lymphoma, 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 - Past Surgical History Other Surgical History: l nephrectomy in 2009 for cancer hysterectomy parathyroid surgery - Family History Family History: reports: no pertinent history - Social History Smoking Status: Never smoker Alcohol: reports: None Drugs: reports: none - Exam General Appearance: NAD, awake alert Eye: PERRL, anicteric sclera ENT: normocephalic atraumatic, no oropharyngeal lesions, moist mucosa Neck: supple, symmetric, no JVD, no thyromegaly, no lymphadenopathy, no carotid bruit Heart: RRR, no murmur, no gallops, no rubs, normal peripheral pulses Respiratory: CTAB, no wheezes, no rales, no ronchi, normal chest expansion, no tachypnea, normal percussion Gastrointestinal: soft, non-tender, non-distended, normal bowel sounds, no palpable masses, no hepatomegaly, no splenomegaly, no bruit Extremities: no cyanosis, no clubbing, 2+ LE edema. negative: clubbing Skin: normal turgor, no lesions, no rashes Skin - other findings: pericardial drain in chest wall, serosanguenous fluid in bag, port in place Neurological: cranial nerve grossly intact, normal sensation to touch, no weakness, no focal deficits, no new deficit Musculoskeletal: normal tone, normal strength, no muscle wasting Psychiatric: normal affect, normal behavior, A&O x 3 Hospitalist Results - Labs Additional comment: reviewed as available, no labs this admission with planned check in AM Hospitalist H&P A/P - Plan Plan: Patient is an 89 year old female with PMH HTN, hyperparathyroidism, newly diagnosed large b cell lymphoma, 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 # large B cell lymphoma - chemo x once on wednesday, now w/ high uric acid and on IVF with rasburicase, got cytoxan, vincristine, rituxan, prednisone, noncompliant with allopurinol but now pledges to remember. 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
[2019-07-28] MEDS: Gabapentin 100 MG CAP PO SCH (21:25)
[2019-07-28] MEDS: Lorazepam 0.5 MG TAB PO SCH (21:25)
[2019-07-28] MEDS: Temazepam 15 MG CAP PO PRN (23:35)
[2019-07-29] MEDS: Sodium Chloride 0.9% 1,000 ML IV SCH ×2 (05:30→15:20)
[2019-07-29 07:37] LABS: Band 30 % (5-11); Hemoglobin 12.2 g/dL (12.0-16.0); Lymphocytes 2 % (21-51); MDiff Complete? YES; Mean Corpuscular HGB CONC 33.6 g/dL (32.0-36.0); Mean Corpuscular Hemoglobin 29.8 pg (27.0-31.0); Mean Corpuscular Volume 88.5 fL (78.0-98.0); Mean Platelet Volume 9.8 fL (7.4-10.4); Monocytes 1 % (0-10); Neutrophil 67 % (42-75); Platelet Count 205 thou/uL (130-400); RBC Distribution Width 12.7 % (11.5-14.5); Red Blood Cell (RBC) Count 4.12 mill/uL (4.20-5.40); White Blood Cell (WBC) Count 22.5 thou/uL (4.8-10.8)
[2019-07-29 07:40] LABS: ALT (SGPT) 44 U/L (8-55); AST (SGOT) 16 U/L (5-34); Albumin 3.5 g/dL (3.4-4.8); Alkaline Phosphatase 296 U/L (40-110); Anion Gap 14 mmol/L (10-20); BUN (Urea Nitrogen) 42 mg/dL (9.8-20.1); Bilirubin, Total 0.5 mg/dL (0.2-1.2); Calc. Creatinine Clearance 27 mL/min (70-130); Calcium 8.2 mg/dL (7.8-10.44); Carbon Dioxide 19 mmol/L (23-31); Chloride 109 mmol/L (98-107); Estimated GFR-MDRD 36; Globulin 2.1 g/dL (2.4-3.5); Glucose 123 mg/dL (83-110); Magnesium 2.5 mg/dL (1.6-2.6); Potassium 4.6 mmol/L (3.5-5.1); Protein, Total 5.6 g/dL (6.0-8.3); Sodium 137 mmol/L (136-145)
[2019-07-29 07:52] LABS: Phosphorus 4.7 mg/dL (2.3-4.7); Uric Acid Less than 2.0 mg/dL (2.6-6.0)
[2019-07-29] MEDS ORDERED: Furosemide 40 MG/4 ML VIAL SLOW IVP SCH (09:00)
[2019-07-29] MEDS: predniSONE 50 MG TAB PO SCH (09:20)
[2019-07-29] MEDS: Polyethylene Glycol 3350 17 GM Packet PO SCH (09:21)
[2019-07-29] MEDS ORDERED: Enoxaparin Sodium 30 MG/0.3 ML SYRINGE SC SCH (10:45)
--- NOTE | 2019-07-29 10:52 | PDOC.HOSPP ---
- Subjective Encounter Date: 07/29/19 Encounter Time: 10:00 Subjective: no sob or abd pain feels better is trying to eat breakfast 2 daughters at bedside - Objective Vital Signs & Weight: Vital Signs (12 hours) Temp Pulse Resp BP Pulse Ox 07/29/19 07:54 98.2 F 70 16 154/67 H 99 07/29/19 03:56 97.4 F L 69 12 148/65 H 97 07/28/19 23:19 97.3 F L 68 16 161/72 H 98 Weight Weight 130 lb Result Diagrams: 07/29/19 07:07 07/29/19 07:07 Hospitalist ROS - Medication Medications: Active Medications Generic Name Dose Route Start Last Admin Trade Name Freq PRN Reason Stop Dose Admin Clonidine 0.2 mg 07/28/19 21:00 07/28/19 21:25 Avypvsra-Tkw-8 TD Not Given Q7D@2100 BRIDGER Furosemide 40 mg 07/29/19 09:00 07/29/19 09:21 Lasix SLOW IVP 40 mg DAILY BRIDGER Administration Gabapentin 100 mg 07/28/19 21:00 07/28/19 21:25 Neurontin PO Not Given HS BRIDGER Sodium Chloride 1,000 mls @ 100 mls/hr 07/28/19 18:00 07/29/19 05:30 Normal Saline 0.9% IV 1,000 mls .Q10H BRIDGER Administration Lorazepam 0.5 mg 07/28/19 21:00 07/28/19 21:25 Ativan PO Not Given QPM BRIDGER Pantoprazole Sodium 40 mg 07/29/19 09:00 07/29/19 09:20 Protonix PO 40 mg DAILY BRIDGER Administration Polyethylene Glycol 17 gm 07/29/19 09:00 07/29/19 09:21 Miralax PO 17 gm DAILY BRIDGER Administration Prednisone 100 mg 07/29/19 08:00 07/29/19 09:20 Prednisone PO 100 mg QAM-WM BRIDGER Administration Temazepam 15 mg 07/28/19 21:03 07/28/19 23:35 Restoril PO 15 mg HSPRN PRN Administration Insomnia - Exam General Appearance: awake alert Eye: PERRL, anicteric sclera ENT: no oropharyngeal lesions, moist mucosa Neck: supple, no JVD Heart: RRR, no murmur Respiratory: no wheezes, no rales Gastrointestinal: soft, non-tender, non-distended, normal bowel sounds Extremities: no cyanosis, 1+ LE edema Neurological: cranial nerve grossly intact, no focal deficits Psychiatric: normal affect, A&O x 3 Hosp A/P (1) Tumor lysis syndrome Code(s): E88.3 - TUMOR LYSIS SYNDROME Status: Acute (2) B-cell lymphoma Code(s): C85.10 - UNSPECIFIED B-CELL LYMPHOMA, UNSPECIFIED SITE Status: Acute Qualifiers: B-cell lymphoma type: diffuse large B-cell (3) TRU (acute kidney injury) Code(s): N17.9 - ACUTE KIDNEY FAILURE, UNSPECIFIED Status: Acute (4) HTN (hypertension) Code(s): I10 - ESSENTIAL (PRIMARY) HYPERTENSION Status: Chronic Qualifiers: Hypertension type: essential hypertension Qualified Code(s): I10 - Essential (primary) hypertension - Plan recieved 1 dose rasburicase yesterday, uric acid down to 2 this am from 15 renal function is holding up she is passing clear urine per family to mobilize as tolerated, PT/OT eval continue clonidine tts, neurontin, prednisone 100mg daily per onc, protonix, NS@ 100mls/hr and morphine prn hemostable Dr.Richard Buckley and will see her today
--- NOTE | 2019-07-29 10:56 | PDOC.FMACP ---
Advance Care Planning - Problem (1) TRU (acute kidney injury) Status: Acute Code(s): N17.9 - ACUTE KIDNEY FAILURE, UNSPECIFIED (2) B-cell lymphoma Status: Acute Code(s): C85.10 - UNSPECIFIED B-CELL LYMPHOMA, UNSPECIFIED SITE Qualifiers: B-cell lymphoma type: diffuse large B-cell (3) Tumor lysis syndrome Status: Acute Code(s): E88.3 - TUMOR LYSIS SYNDROME - Note Participants: patient, family (long discussion again regarding code status and prognosis. she remains a full code but states that if she has an irreversible problem she would like to be "let go." she understands her prognosis is poor but there is change she may recover. her children voiced understanding as well. we did discuss that if she has cancer cells in her CSF that i would likely recommend hospice. we briefly discussed this and what this would look like) Time Spent (mins): 15
--- NOTE | 2019-07-29 11:32 | CON ---
DATE OF CONSULTATION: 07/29/2019 HISTORY OF PRESENT ILLNESS: Ms. 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 She was diagnosed just 2 weeks ago with large cell lymphoma of the pericardial space and had a pericardial effusion with drainage by Dr. Garcia. She has an indwelling pericardial drain, which has been draining serosanguineous fluid over this period of time. She presented to my office earlier in the week with progressive decline as well as night sweats and weakness. She was treated with chemotherapy 2 days prior to this admission. Her uric acid was high prior to treatment and her creatinine at baseline is slightly elevated due to history of nephrectomy for renal cell carcinoma in the distant past. On the day we started chemotherapy, she was given a prescription for allopurinol and she was aggressively hydrated over the next 2 days. Unfortunately, she was not given the allopurinol at home and on the day of admission, her uric acid is elevated to 15 and her creatinine had gone up to 1.59. She was not eating or drinking at home and so she was admitted. Today, she is doing much better. She is hungry and eating and drinking more. Her creatinine has declined slightly, and her uric acid is down to normal. She has no other complaints today. She is weak and has swollen ankles. All this has been going on for the last couple of days. She denies any chest pain or shortness of breath. She is not ambulating much on her own. She does complain of blurry vision, which has been going on for the last couple of weeks. She also has had some intermittent headaches as well as some pain on the side of her face. Her right leg was quite weak earlier in the week, but has gotten somewhat stronger. PAST MEDICAL HISTORY: 1. Recent diagnosis of large cell lymphoma of the pericardial space. 2. History of renal cell carcinoma, status post nephrectomy. 3. Hypertension. 4. Anxiety. ALLERGIES: AMLODIPINE. CURRENT MEDICATIONS: 1. Tylenol p.r.n. 2. Bisacodyl 10 mg p.o. daily p.r.n. 3. Clonidine 0.1 mg p.o. q.4 hours p.r.n. 4. Furosemide 40 mg IV x1. 5. Lasix 40 mg IV daily. 6. Gabapentin 100 mg p.o. at bedtime. 7. Hydrocodone one tab p.o. q.4 hours p.r.n. 8. Lorazepam 0.5 mg p.o. q.p.m. p.r.n. 9. Morphine 2 mg IV q.4 hours p.r.n. 10. Ondansetron 4 mg IV q.6 hours p.r.n. 11. Protonix 40 mg p.o. daily. 12. MiraLAX 17 g p.o. daily. 13. Prednisone 100 mg p.o. daily for a total of 4 days after chemotherapy. 14. Phenergan 12.5 mg IV q.6 hours p.r.n. 15. Rasburicase 12 mg x1 given yesterday. 16. Temazepam 15 mg p.o. at bedtime p.r.n. SOCIAL HISTORY: She is here with her daughters and grandchildren, who are quite supportive. She denies tobacco or alcohol use. She is . FAMILY HISTORY: Noncontributory. REVIEW OF SYSTEMS: Otherwise, review of systems is negative. Please see the History of Present Illness. PHYSICAL EXAMINATION: VITAL SIGNS: Temperature 98.2, pulse 70, respirations 16, O2 saturation 99% on room air, and blood pressure 154/67. GENERAL: She is alert, awake, and oriented x3. HEENT: She does have some deviation of the left eye laterally. Sclerae are anicteric. NECK: Supple without lymphadenopathy. CARDIOVASCULAR: Regular rhythm with a 2/6 systolic murmur. Her pericardial drain is intact with serosanguineous drainage in the bulb. LUNGS: Decreased breath sounds in the bases bilaterally. ABDOMEN: Hypoactive bowel sounds. Soft, nontender, and nondistended. EXTREMITIES: Bilateral edema, equal and approximately 1+. ASSESSMENT: Ms. Burdick is an 89-year-old female with; 1. Large cell lymphoma of the pericardial space. 2. Hyperuricemia secondary to lymphoma, now resolved. 3. Acute renal failure, improving. 4. Volume overload secondary to IV fluids and possibly heart failure. 5. Deviation of the left eye laterally as well as some headaches. PLAN: 1. We discussed again the diagnosis and prognosis. They understand that this is a difficult situation that she may improve from, but there is a chance that she may not recover. She got chemotherapy last Wednesday and will not be due for another 2-1/2 weeks. She was treated with lower dose Cytoxan as well as vincristine, prednisone, and Rituxan. 2. Hold further rasburicase. 3. Nephrology has been consulted for volume status and to consider Lasix, I am not sure that she needs this daily, but we will leave this up to the resident care coordinator. 4. I have ordered a lumbar puncture for cytology on the CSF to assess her for further disease. She had an MRI as an outpatient that looked inconclusive, but not diagnostic for lymphoma in the CSF. Therefore, we will proceed with lumbar puncture. 5. I would recommend anticoagulation with Lovenox prophylactically after the lumbar puncture. 6. She remains a full code, this was re-dressed with her today. Job ID: [id number]
--- NOTE | 2019-07-29 12:51 | RAD ---
Lumbar puncture with fluoroscopic guidance: 07/29/2019 HISTORY: 89-year-old female with a history of lymphoma. CSF analysis for staging requested FINDINGS: Informed consent obtained prior to the procedure. Skin overlying the lumbar spine prepped a nd draped in normal sterile fashion and anesthetized with 1% buffered lidocaine at the L3 level. With intermittent fluoroscopic guidance, a 22-gauge spinal needle is advanced into the thecal sac and removal of the stylet yields clear cerebrospinal fluid. Opening pressures approximately 10 cm of water. 9 cc of cerebrospinal fluid were obtained and sent to the laboratory for cytologic assessment. Patient tolerated the procedure well. IMPRESSION: Successful lumbar puncture with fluoroscopic guidance.
[2019-07-29] MEDS: cloNIDine 0.1 MG TAB PO PRN (17:23)
[2019-07-29] MEDS ORDERED: cloNIDine 0.2mg/24 Hour PATCH TD SCH (21:00)
[2019-07-29] MEDS: Gabapentin 100 MG CAP PO SCH (21:49)
[2019-07-29] MEDS: Lorazepam 0.5 MG TAB PO SCH (21:50)
[2019-07-30] MEDS: Sodium Chloride 0.9% 1,000 ML IV SCH ×2 (00:23→11:11)
[2019-07-30] MEDS: Acetaminophen 325 MG TAB PO PRN ×2 (05:31→21:35)
[2019-07-30 06:44] LABS: Band 16 % (5-11); Lymphocytes 1 % (21-51); MDiff Complete? YES; Mean Corpuscular HGB CONC 33.5 g/dL (32.0-36.0); Mean Corpuscular Hemoglobin 30.3 pg (27.0-31.0); Mean Corpuscular Volume 90.6 fL (78.0-98.0); Mean Platelet Volume 9.3 fL (7.4-10.4); Neutrophil 83 % (42-75); Platelet Count 150 thou/uL (130-400); RBC Distribution Width 12.7 % (11.5-14.5); Red Blood Cell (RBC) Count 3.63 mill/uL (4.20-5.40); White Blood Cell (WBC) Count 14.1 thou/uL (4.8-10.8)
[2019-07-30 06:48] LABS: ALT (SGPT) 38 U/L (8-55); AST (SGOT) 20 U/L (5-34); Alkaline Phosphatase 219 U/L (40-110); Anion Gap 10 mmol/L (10-20); BUN (Urea Nitrogen) 37 mg/dL (9.8-20.1); Bilirubin, Total 0.5 mg/dL (0.2-1.2); Calc. Creatinine Clearance 34 mL/min (70-130); Calcium 7.7 mg/dL (7.8-10.44); Carbon Dioxide 22 mmol/L (23-31); Chloride 110 mmol/L (98-107); Estimated GFR-MDRD 49; Globulin 1.8 g/dL (2.4-3.5); Glucose 133 mg/dL (83-110); Magnesium 2.2 mg/dL (1.6-2.6); Phosphorus 3.3 mg/dL (2.3-4.7); Potassium 4.3 mmol/L (3.5-5.1); Protein, Total 4.8 g/dL (6.0-8.3); Sodium 138 mmol/L (136-145); Uric Acid Less than 2.0 mg/dL (2.6-6.0)
[2019-07-30] MEDS: predniSONE 50 MG TAB PO SCH (08:22)
[2019-07-30] MEDS: Enoxaparin Sodium 30 MG/0.3 ML SYRINGE SC SCH (08:23)
[2019-07-30] MEDS: Polyethylene Glycol 3350 17 GM Packet PO SCH (08:23)
[2019-07-30] MEDS: cloNIDine 0.1 MG TAB PO PRN ×2 (08:35→12:10)
--- NOTE | 2019-07-30 10:42 | PDOC.HOSPP ---
- Subjective Encounter Date: 07/30/19 Encounter Time: 10:40 Subjective: no sob, feels better no headache is ambulating with PT in hallway a bit - Objective Vital Signs & Weight: Vital Signs (12 hours) Temp Pulse Resp BP BP Pulse Ox 07/30/19 08:35 170/72 H 07/30/19 08:00 97.4 F L 72 16 170/72 H 98 Weight Admit Weight 130 lb Weight 130 lb I&O: 07/29/19 07/30/19 07/31/19 06:59 06:59 06:59 Intake Total 3490 Output Total 4930 Balance -1440 Result Diagrams: 07/30/19 05:59 07/30/19 05:59 Hospitalist ROS - Medication Medications: Active Medications Generic Name Dose Route Start Last Admin Trade Name Freq PRN Reason Stop Dose Admin Acetaminophen 650 mg 07/28/19 20:53 07/30/19 05:31 Tylenol PO 650 mg Q4H PRN Administration Headache/Fever/Mild Pain (1-3) Clonidine 0.1 mg 07/28/19 20:57 07/30/19 08:35 Catapres PO 0.1 mg Q4H PRN Administration SBP > 160 use second Clonidine 0.2 mg 07/29/19 21:00 07/29/19 20:10 Bbnsiedy-Nke-4 TD 0.2 mg Q7D@2100 BRIDGER Administration Enoxaparin Sodium 30 mg 07/30/19 09:00 07/30/19 08:23 Lovenox SC 30 mg 0900 BRIDGER Administration Gabapentin 100 mg 07/28/19 21:00 07/29/19 21:49 Neurontin PO Not Given HS BRIDGER Lorazepam 0.5 mg 07/28/19 21:00 07/29/19 21:50 Ativan PO Not Given QPM BRIDGER Pantoprazole Sodium 40 mg 07/29/19 09:00 07/30/19 08:22 Protonix PO 40 mg DAILY BRIDGER Administration Polyethylene Glycol 17 gm 07/29/19 09:00 07/30/19 08:23 Miralax PO 17 gm DAILY BRIDGER Administration Prednisone 100 mg 07/29/19 08:00 07/30/19 08:22 Prednisone PO 100 mg QAM-WM BRIDGER Administration Temazepam 15 mg 07/28/19 21:03 07/28/19 23:35 Restoril PO 15 mg HSPRN PRN Administration Insomnia - Exam General Appearance: NAD, awake alert Eye: PERRL, anicteric sclera ENT: no oropharyngeal lesions, moist mucosa Neck: supple, no JVD Heart: RRR, no murmur Respiratory: no wheezes, no rales Gastrointestinal: soft, non-tender, non-distended, normal bowel sounds Extremities: no cyanosis, 1+ LE edema Neurological: cranial nerve grossly intact, no focal deficits Psychiatric: normal affect, A&O x 3 Hosp A/P (1) Tumor lysis syndrome Code(s): E88.3 - TUMOR LYSIS SYNDROME Status: Resolved (2) B-cell lymphoma Code(s): C85.10 - UNSPECIFIED B-CELL LYMPHOMA, UNSPECIFIED SITE Status: Acute Qualifiers: B-cell lymphoma type: diffuse large B-cell (3) TRU (acute kidney injury) Code(s): N17.9 - ACUTE KIDNEY FAILURE, UNSPECIFIED Status: Resolved (4) HTN (hypertension) Code(s): I10 - ESSENTIAL (PRIMARY) HYPERTENSION Status: Chronic Qualifiers: Hypertension type: essential hypertension Qualified Code(s): I10 - Essential (primary) hypertension - Plan recieved 1 dose rasburicase 07/28/2019, uric acid down to 2 from 15 renal function is almost normal she is passing clear urine per family to mobilize as tolerated, PT/OT eval continue clonidine tts, neurontin, prednisone 100mg daily per onc, protonix and morphine prn hemostable spinal fluid cytology is pending dc plan per onc, ?likely am
--- NOTE | 2019-07-30 11:54 | PDOC.MOPN ---
Interval History: LP yesterday, she continues to feel better. no pain anywhere now. no back pain or leg pain. she has some RLE weakness but it improved with PT working with her - Vital Signs Vital Signs: Vital Signs (12 hours) Temp Pulse Pulse Pulse Pulse Resp BP 07/30/19 09:36 72 100 72 07/30/19 08:35 170/72 H 07/30/19 08:00 97.4 F L 72 16 BP BP BP BP Pulse Ox 07/30/19 09:36 158/67 H 187/74 H 189/74 H 07/30/19 08:35 07/30/19 08:00 170/72 H 98 Weight Admit Weight 130 lb Weight 130 lb - Physical Exam General: Alert HEENT: Atraumatic Lungs: Clear to auscultation Cardiovascular: Regular rate Abdomen: Normal bowel sounds Extremities: No clubbing, No edema Skin: No rashes Neurological: Normal speech, Sensation intact Psych/Mental Status: Mental status NL - Labs Result Diagrams: 07/30/19 05:59 07/30/19 05:59 Lab results: Laboratory Results - last 24 hr 07/30/19 05:59: Sodium 138, Potassium 4.3, Chloride 110 H, Carbon Dioxide 22 L, Anion Gap 10, BUN 37 H, Creatinine 1.07, Estimated GFR (MDRD) 49, Glucose 133 H , Uric Acid Less than 2.0 L, Calcium 7.7 L, Phosphorus 3.3, Magnesium 2.2, Total Bilirubin 0.5, AST 20, ALT 38, Alkaline Phosphatase 219 H, Serum Total Protein 4.8 L, Albumin 3.0 L, Globulin 1.8 L, Albumin/Globulin Ratio 1.7 07/30/19 05:59: WBC 14.1 H, RBC 3.63 L, Hgb 11.0 L, Hct 32.9 L, MCV 90.6, MCH 30.3, MCHC 33.5, RDW 12.7, Plt Count 150, MPV 9.3, Neutrophils % (Manual) 83 H, Band Neuts % (Manual) 16 H, Lymphocytes % (Manual) 1 L 07/30/19 05:59: Lactate Dehydrogenase 284 H A/P - Problem (1) TRU (acute kidney injury) Current Visit: Yes Code(s): N17.9 - ACUTE KIDNEY FAILURE, UNSPECIFIED Status : Resolved (2) B-cell lymphoma Current Visit: Yes Code(s): C85.10 - UNSPECIFIED B-CELL LYMPHOMA, UNSPECIFIED SITE Status: Acute Qualifiers: B-cell lymphoma type: diffuse large B-cell (3) Tumor lysis syndrome Current Visit: Yes Code(s): E88.3 - TUMOR LYSIS SYNDROME Status: Resolved - Plan Plan: 1. Cr returned to normal, continue to follow 2. CM consult for rehab eval 3. continue lasix 4. stop prednisone after today 5. f/u cytology results tomorrow
[2019-07-30] MEDS: Gabapentin 100 MG CAP PO SCH (19:19)
[2019-07-30] MEDS: Lorazepam 0.5 MG TAB PO SCH (19:19)
[2019-07-30] MEDS: Temazepam 15 MG CAP PO PRN (19:51)
[2019-07-30] MEDS ORDERED: Temazepam 15 MG CAP PO PRN (21:27)
[2019-07-31] MEDS: Acetaminophen 325 MG TAB PO PRN ×2 (02:09→19:24)
[2019-07-31 05:39] LABS: ALT (SGPT) 121 U/L (8-55); AST (SGOT) 46 U/L (5-34); Alkaline Phosphatase 207 U/L (40-110); Anion Gap 11 mmol/L (10-20); BUN (Urea Nitrogen) 31 mg/dL (9.8-20.1); Bilirubin, Total 0.8 mg/dL (0.2-1.2); Calc. Creatinine Clearance 37 mL/min (70-130); Calcium 7.8 mg/dL (7.8-10.44); Carbon Dioxide 23 mmol/L (23-31); Chloride 108 mmol/L (98-107); Estimated GFR-MDRD 52; Globulin 1.7 g/dL (2.4-3.5); Glucose 123 mg/dL (83-110); Magnesium 2.1 mg/dL (1.6-2.6); Potassium 4.6 mmol/L (3.5-5.1); Protein, Total 4.7 g/dL (6.0-8.3); Sodium 137 mmol/L (136-145)
[2019-07-31 05:49] LABS: Phosphorus 2.5 mg/dL (2.3-4.7); Uric Acid Less than 2.0 mg/dL (2.6-6.0)
[2019-07-31 05:52] LABS: Band 11 % (5-11); Hemoglobin 10.7 g/dL (12.0-16.0); Lymphocytes 4 % (21-51); MDiff Complete? YES; Mean Corpuscular HGB CONC 32.5 g/dL (32.0-36.0); Mean Corpuscular Hemoglobin 29.2 pg (27.0-31.0); Mean Platelet Volume 10.3 fL (7.4-10.4); Monocytes 1 % (0-10); Neutrophil 84 % (42-75); Platelet Count 121 thou/uL (130-400); RBC Distribution Width 12.6 % (11.5-14.5); Red Blood Cell (RBC) Count 3.66 mill/uL (4.20-5.40); White Blood Cell (WBC) Count 9.2 thou/uL (4.8-10.8)
[2019-07-31] MEDS: cloNIDine 0.1 MG TAB PO SCH ×2 (08:35→19:24)
[2019-07-31] MEDS: Polyethylene Glycol 3350 17 GM Packet PO SCH (08:36)
[2019-07-31] MEDS: Enoxaparin Sodium 30 MG/0.3 ML SYRINGE SC SCH (09:27)
--- NOTE | 2019-07-31 12:54 | PDOC.HOSPP ---
- Subjective Encounter Date: 07/31/19 Encounter Time: 12:15 Subjective: is resting comfortably, no sob or weakness - Objective Vital Signs & Weight: Vital Signs (12 hours) Temp Pulse Resp BP BP Pulse Ox 07/31/19 08:35 168/79 H 07/31/19 08:00 95 07/31/19 07:50 98.5 F 72 16 168/79 H 95 07/31/19 04:30 97.4 F L 71 16 88/51 L 92 L Weight Admit Weight 130 lb Weight 130 lb I&O: 07/30/19 07/31/19 08/01/19 06:59 06:59 06:59 Intake Total 3490 1040 Output Total 4930 270 Balance -1440 770 Result Diagrams: 07/31/19 04:16 07/31/19 04:16 Hospitalist ROS - Medication Medications: Active Medications Generic Name Dose Route Start Last Admin Trade Name Freq PRN Reason Stop Dose Admin Acetaminophen 650 mg 07/28/19 20:53 07/31/19 02:09 Tylenol PO 650 mg Q4H PRN Administration Headache/Fever/Mild Pain (1-3) Bisacodyl 10 mg 07/28/19 20:53 07/31/19 08:37 Dulcolax PO 10 mg DAILYPRN PRN Administration Constipation Clonidine 0.1 mg 07/28/19 20:57 07/30/19 12:10 Catapres PO 0.1 mg Q4H PRN Administration SBP > 160 use second Clonidine 0.1 mg 07/31/19 09:00 07/31/19 08:35 Catapres PO 0.1 mg BID BRIDGER Administration Enoxaparin Sodium 30 mg 07/30/19 09:00 07/31/19 09:27 Lovenox SC 30 mg 0900 BRIDGER Administration Gabapentin 100 mg 07/28/19 21:00 07/30/19 19:19 Neurontin PO Not Given HS BRIDGER Lorazepam 0.5 mg 07/28/19 21:00 07/30/19 19:19 Ativan PO Not Given QPM BRIDGER Pantoprazole Sodium 40 mg 07/29/19 09:00 07/31/19 08:35 Protonix PO 40 mg DAILY BRIDGER Administration Polyethylene Glycol 17 gm 07/29/19 09:00 07/31/19 08:36 Miralax PO 17 gm DAILY BRIDGER Administration Temazepam 15 mg 07/28/19 21:03 07/30/19 19:51 Restoril PO 15 mg HSPRN PRN Administration Insomnia - Exam General Appearance: NAD, awake alert Eye: PERRL, anicteric sclera ENT: no oropharyngeal lesions, moist mucosa Neck: supple, no JVD Heart: RRR, no murmur Respiratory: no wheezes, no rales Gastrointestinal: soft, non-tender, non-distended, normal bowel sounds Extremities: no cyanosis, no edema Neurological: cranial nerve grossly intact, no focal deficits Psychiatric: normal affect, A&O x 3 Hosp A/P (1) Tumor lysis syndrome Code(s): E88.3 - TUMOR LYSIS SYNDROME Status: Resolved (2) B-cell lymphoma Code(s): C85.10 - UNSPECIFIED B-CELL LYMPHOMA, UNSPECIFIED SITE Status: Acute Qualifiers: B-cell lymphoma type: diffuse large B-cell (3) TRU (acute kidney injury) Code(s): N17.9 - ACUTE KIDNEY FAILURE, UNSPECIFIED Status: Resolved (4) HTN (hypertension) Code(s): I10 - ESSENTIAL (PRIMARY) HYPERTENSION Status: Chronic Qualifiers: Hypertension type: essential hypertension Qualified Code(s): I10 - Essential (primary) hypertension - Plan recieved 1 dose rasburicase 07/28/2019, uric acid down to 2 from 15 renal function is normal she is passing clear urine to mobilize as tolerated continue clonidine bid, neurontin, protonix and morphine prn hemostable spinal fluid cytology is pending dc plan per onc adv to rehab, await placement
[2019-07-31] MEDS: Lorazepam 1 MG TAB PO PRN ×2 (15:14→23:02)
--- NOTE | 2019-07-31 15:33 | PDOC.MOPN ---
Interval History: no complaints. - Vital Signs Vital Signs: Vital Signs (12 hours) Temp Pulse Pulse Pulse Resp BP BP 07/31/19 13:47 74 82 194/76 H 07/31/19 08:35 168/79 H 07/31/19 08:00 07/31/19 07:50 98.5 F 72 16 07/31/19 04:30 97.4 F L 71 16 BP BP Pulse Ox 07/31/19 13:47 198/79 H 07/31/19 08:35 07/31/19 08:00 95 07/31/19 07:50 168/79 H 95 07/31/19 04:30 88/51 L 92 L Weight Admit Weight 130 lb Weight 130 lb - Physical Exam General: Alert HEENT: Atraumatic, PERRLA, EOMI, Mucous membr. moist/pink Lungs: Clear to auscultation, Normal air movement Cardiovascular: Regular rate, Normal S1, Normal S2, No murmurs, Gallops, Rubs Abdomen: Normal bowel sounds, Soft, No tenderness, No hepatospenomegaly, No masses Extremities: No clubbing, No cyanosis, No edema, Normal pulses, No tenderness/ swelling Skin: No rashes, No breakdown, No significant lesion Neurological: Normal speech - Labs Result Diagrams: 08/01/19 03:46 08/01/19 03:46 Lab results: Laboratory Results - last 24 hr 07/31/19 04:16: Uric Acid Less than 2.0 L, Phosphorus 2.5 07/31/19 04:16: Sodium 137, Potassium 4.6, Chloride 108 H, Carbon Dioxide 23, Anion Gap 11, BUN 31 H, Creatinine 1.00, Estimated GFR (MDRD) 52, Glucose 123 H , Calcium 7.8, Magnesium 2.1, Total Bilirubin 0.8, AST 46 H, ALT 121 H, Alkaline Phosphatase 207 H, Serum Total Protein 4.7 L, Albumin 3.0 L, Globulin 1.7 L, Albumin/Globulin Ratio 1.8 07/31/19 04:16: WBC 9.2, RBC 3.66 L, Hgb 10.7 L, Hct 32.9 L, MCV 90.0, MCH 29.2 , MCHC 32.5, RDW 12.6, Plt Count 121 L, MPV 10.3, Neutrophils % (Manual) 84 H, Band Neuts % (Manual) 11, Lymphocytes % (Manual) 4 L, Monocytes % (Manual) 1 07/31/19 04:16: Lactate Dehydrogenase 249 H Status: lab reviewed by me A/P - Problem (1) B-cell lymphoma Current Visit: Yes Code(s): C85.10 - UNSPECIFIED B-CELL LYMPHOMA, UNSPECIFIED SITE Status: Acute Qualifiers: B-cell lymphoma type: diffuse large B-cell (2) Tumor lysis syndrome Current Visit: Yes Code(s): E88.3 - TUMOR LYSIS SYNDROME Status: Resolved - Plan Plan: working with PT await csf results to rehab when approved.
[2019-07-31] MEDS: Lorazepam 0.5 MG TAB PO SCH (19:24)
[2019-07-31] MEDS: Temazepam 15 MG CAP PO PRN (19:24)
[2019-07-31] MEDS: Gabapentin 100 MG CAP PO SCH (19:24)
[2019-07-31] MEDS: Docusate 100 MG CAP PO SCH (19:24)
[2019-08-01] MEDS: Acetaminophen 325 MG TAB PO PRN (02:31)
[2019-08-01] MEDS: cloNIDine 0.1 MG TAB PO PRN (03:50)
[2019-08-01 04:28] LABS: Phosphorus 2.4 mg/dL (2.3-4.7); Uric Acid 2.1 mg/dL (2.6-6.0)
[2019-08-01 04:29] LABS: ALT (SGPT) 91 U/L (8-55); AST (SGOT) 21 U/L (5-34); Alkaline Phosphatase 190 U/L (40-110); Anion Gap 9 mmol/L (10-20); BUN (Urea Nitrogen) 26 mg/dL (9.8-20.1); Bilirubin, Total 0.6 mg/dL (0.2-1.2); Calc. Creatinine Clearance 40 mL/min (70-130); Calcium 8.2 mg/dL (7.8-10.44); Carbon Dioxide 26 mmol/L (23-31); Chloride 107 mmol/L (98-107); Estimated GFR-MDRD 58; Globulin 1.7 g/dL (2.4-3.5); Glucose 101 mg/dL (83-110); Magnesium 1.9 mg/dL (1.6-2.6); Potassium 4.2 mmol/L (3.5-5.1); Protein, Total 4.7 g/dL (6.0-8.3); Sodium 138 mmol/L (136-145)
[2019-08-01 05:08] LABS: Band 19 % (5-11); Hemoglobin 11.9 g/dL (12.0-16.0); Lymphocytes 15 % (21-51); MDiff Complete? YES; Mean Corpuscular HGB CONC 32.1 g/dL (32.0-36.0); Mean Corpuscular Volume 90.4 fL (78.0-98.0); Mean Platelet Volume 9.9 fL (7.4-10.4); Monocytes 4 % (0-10); Neutrophil 62 % (42-75); Platelet Count 81 thou/uL (130-400); Platelet Morphology Comment Appears Decreased; RBC Distribution Width 12.5 % (11.5-14.5); Red Blood Cell (RBC) Count 4.12 mill/uL (4.20-5.40); White Blood Cell (WBC) Count 1.2 thou/uL (4.8-10.8)
[2019-08-01] MEDS: Docusate 100 MG CAP PO SCH ×2 (08:41→20:00)
[2019-08-01] MEDS: Polyethylene Glycol 3350 17 GM Packet PO SCH (08:42)
[2019-08-01] MEDS ORDERED: Metoprolol Tartrate 25 MG TAB PO SCH (09:00)
[2019-08-01] MEDS ORDERED: cloNIDine 0.1 MG TAB PO SCH (09:00)
[2019-08-01] MEDS: Enoxaparin Sodium 30 MG/0.3 ML SYRINGE SC SCH (09:56)
--- NOTE | 2019-08-01 13:23 | PDOC.HOSPP ---
- Subjective Encounter Date: 08/01/19 Encounter Time: 10:00 Subjective: is sitting in chair, no sob feels a bit weak daughters are present at bedside she ate her breakfast - Objective Vital Signs & Weight: Vital Signs (12 hours) Temp Pulse Resp BP Pulse Ox 08/01/19 11:15 113/58 L 08/01/19 08:41 98 08/01/19 08:00 98.2 F 85 16 175/81 H 98 08/01/19 04:04 97.3 F L 75 16 192/81 H 98 Weight Admit Weight 130 lb Weight 130 lb I&O: 07/31/19 08/01/19 08/02/19 06:59 06:59 06:59 Intake Total 1040 730 Output Total 270 40 Balance 770 690 Result Diagrams: 08/01/19 03:46 08/01/19 03:46 Hospitalist ROS - Medication Medications: Active Medications Generic Name Dose Route Start Last Admin Trade Name Freq PRN Reason Stop Dose Admin Acetaminophen 650 mg 07/28/19 20:53 08/01/19 02:31 Tylenol PO 650 mg Q4H PRN Administration Headache/Fever/Mild Pain (1-3) Bisacodyl 10 mg 07/28/19 20:53 07/31/19 08:37 Dulcolax PO 10 mg DAILYPRN PRN Administration Constipation Clonidine 0.1 mg 07/28/19 20:57 08/01/19 03:50 Catapres PO 0.1 mg Q4H PRN Administration SBP > 160 use second Docusate Sodium 100 mg 07/31/19 21:00 08/01/19 08:41 Colace PO 100 mg BID BRIDGER Administration Enoxaparin Sodium 30 mg 07/30/19 09:00 08/01/19 09:56 Lovenox SC 30 mg 0900 BRIDGER Administration Gabapentin 100 mg 07/28/19 21:00 07/31/19 19:24 Neurontin PO Not Given HS BRIDGER Lorazepam 0.5 mg 07/28/19 21:00 07/31/19 19:24 Ativan PO 0.5 mg QPM BRIDGER Administration Lorazepam 1 mg 07/31/19 15:06 07/31/19 23:02 Ativan PO 1 mg Q6H PRN Administration Anxiety/Agitation Pantoprazole Sodium 40 mg 07/29/19 09:00 08/01/19 08:41 Protonix PO 40 mg DAILY BRIDGER Administration Polyethylene Glycol 17 gm 07/29/19 09:00 08/01/19 08:42 Miralax PO 17 gm DAILY BRIDGER Administration Sodium Chloride 10 ml 08/01/19 09:00 08/01/19 09:59 Flush - Normal Saline IVF 10 ml Q12HR BRIDGER Administration Temazepam 15 mg 07/28/19 21:03 07/31/19 19:24 Restoril PO 15 mg HSPRN PRN Administration Insomnia - Exam General Appearance: awake alert Eye: PERRL, anicteric sclera ENT: no oropharyngeal lesions, moist mucosa Neck: supple, no JVD Heart: RRR, no murmur Respiratory: no wheezes, no rales Respiratory - other findings: pericardial per tube+ Gastrointestinal: soft, non-tender, non-distended, normal bowel sounds Extremities: no cyanosis, no edema Neurological: cranial nerve grossly intact, no focal deficits Psychiatric: A&O x 3 Hosp A/P (1) Tumor lysis syndrome Code(s): E88.3 - TUMOR LYSIS SYNDROME Status: Resolved (2) B-cell lymphoma Code(s): C85.10 - UNSPECIFIED B-CELL LYMPHOMA, UNSPECIFIED SITE Status: Acute Qualifiers: B-cell lymphoma type: diffuse large B-cell (3) TRU (acute kidney injury) Code(s): N17.9 - ACUTE KIDNEY FAILURE, UNSPECIFIED Status: Resolved (4) HTN (hypertension) Code(s): I10 - ESSENTIAL (PRIMARY) HYPERTENSION Status: Chronic Qualifiers: Hypertension type: essential hypertension Qualified Code(s): I10 - Essential (primary) hypertension - Plan recieved 1 dose rasburicase 07/28/2019, uric acid down to 2 from 15 renal function is normal she is passing clear urine to mobilize as tolerated continue clonidine 0.2mg tts, imdur er, neurontin, protonix and morphine prn hemostable spinal fluid cytology shows no obvious malignant cells but flow cytometry is pending dc plan per onc adv to rehab, await placement
--- NOTE | 2019-08-01 14:18 | PDOC.MOPN ---
Interval History: sitting in chair. No complaints. - Vital Signs Vital Signs: Vital Signs (12 hours) Temp Pulse Resp BP Pulse Ox 08/01/19 11:15 113/58 L 08/01/19 08:41 98 08/01/19 08:00 98.2 F 85 16 175/81 H 98 08/01/19 04:04 97.3 F L 75 16 192/81 H 98 Weight Admit Weight 130 lb Weight 130 lb - Physical Exam General: Alert, Oriented x3, No acute distress Lungs: Clear to auscultation, Normal air movement Cardiovascular: Regular rate, Normal S1, Normal S2, No murmurs, Gallops, Rubs, Other (pericardial drain) Abdomen: Normal bowel sounds, Soft, No tenderness, No hepatospenomegaly, No masses Extremities: No clubbing, No cyanosis, No edema, Normal pulses, No tenderness/ swelling Skin: No rashes, No breakdown, No significant lesion Neurological: Normal speech Psych/Mental Status: Mental status NL - Labs Result Diagrams: 08/01/19 03:46 08/01/19 03:46 Lab results: Laboratory Results - last 24 hr 08/01/19 03:46: Uric Acid 2.1 L, Phosphorus 2.4 08/01/19 03:46: Sodium 138, Potassium 4.2, Chloride 107, Carbon Dioxide 26, Anion Gap 9 L, BUN 26 H, Creatinine 0.92, Estimated GFR (MDRD) 58, Glucose 101, Calcium 8.2, Magnesium 1.9, Total Bilirubin 0.6, AST 21, ALT 91 H, Alkaline Phosphatase 190 H, Serum Total Protein 4.7 L, Albumin 3.0 L, Globulin 1.7 L, Albumin/Globulin Ratio 1.8 08/01/19 03:46: WBC 1.2 L, RBC 4.12 L, Hgb 11.9 L, Hct 37.2, MCV 90.4, MCH 29.0 , MCHC 32.1, RDW 12.5, Plt Count 81 L, MPV 9.9, Neutrophils % (Manual) 62, Band Neuts % (Manual) 19 H, Lymphocytes % (Manual) 15 L, Monocytes % (Manual) 4, Plt Morphology Comment Appears Decreased L 08/01/19 03:46: Lactate Dehydrogenase 197 Status: lab reviewed by me A/P - Problem (1) B-cell lymphoma Current Visit: Yes Code(s): C85.10 - UNSPECIFIED B-CELL LYMPHOMA, UNSPECIFIED SITE Status: Acute Qualifiers: B-cell lymphoma type: diffuse large B-cell (2) Tumor lysis syndrome Current Visit: Yes Code(s): E88.3 - TUMOR LYSIS SYNDROME Status: Resolved - Plan Plan: Patient accepted to rehab, await bed CSF prelim negative for lymphoma, flow pending Follow-up outpatient after rehab. follow-up Dr. Garcia for drain removal and mediport.
[2019-08-01] MEDS: HYDROcodone/Acetaminophen 5/325 mg Tablet PO PRN (19:58)
[2019-08-01] MEDS: Lorazepam 0.5 MG TAB PO SCH (20:00)
[2019-08-01] MEDS: Gabapentin 100 MG CAP PO SCH (20:00)
[2019-08-02] MEDS: HYDROcodone/Acetaminophen 5/325 mg Tablet PO PRN ×2 (03:10→20:26)
[2019-08-02 05:29] LABS: White Blood Cell (WBC) Count 0.4 thou/uL (4.8-10.8)
[2019-08-02 05:40] LABS: Phosphorus 2.3 mg/dL (2.3-4.7); Uric Acid 3.2 mg/dL (2.6-6.0)
[2019-08-02 05:41] LABS: ALT (SGPT) 67 U/L (8-55); AST (SGOT) 13 U/L (5-34); Alkaline Phosphatase 177 U/L (40-110); Anion Gap 10 mmol/L (10-20); BUN (Urea Nitrogen) 18 mg/dL (9.8-20.1); Bilirubin, Total 0.6 mg/dL (0.2-1.2); Calc. Creatinine Clearance 41 mL/min (70-130); Calcium 8.8 mg/dL (7.8-10.44); Carbon Dioxide 29 mmol/L (23-31); Chloride 102 mmol/L (98-107); Estimated GFR-MDRD 59; Globulin 1.9 g/dL (2.4-3.5); Glucose 109 mg/dL (83-110); Magnesium 1.7 mg/dL (1.6-2.6); Potassium 4.5 mmol/L (3.5-5.1); Protein, Total 4.9 g/dL (6.0-8.3); Sodium 136 mmol/L (136-145)
[2019-08-02 05:59] LABS: Hemoglobin 12.4 g/dL (12.0-16.0); Mean Corpuscular HGB CONC 33.9 g/dL (32.0-36.0); Mean Corpuscular Volume 91.7 fL (78.0-98.0); Mean Platelet Volume 10.2 fL (7.4-10.4); Platelet Count 61 thou/uL (130-400); RBC Distribution Width 12.4 % (11.5-14.5); Red Blood Cell (RBC) Count 3.99 mill/uL (4.20-5.40)
[2019-08-02] MEDS ORDERED: Cipro 250 MG TAB PO SCH ×2 (07:52→08:00)
--- NOTE | 2019-08-02 08:05 | PDOC.MOPN ---
Interval History: no fevers, lots of fatigue, up out of bed yesterday but today she is too tired. back pain yesterday but better today - Vital Signs Vital Signs: Weight Admit Weight 130 lb Weight 130 lb - Physical Exam General: Other (awake and appropriate with voice but sleepy) HEENT: Atraumatic Lungs: Clear to auscultation Cardiovascular: Regular rate Abdomen: Normal bowel sounds Extremities: Other (traceedema leigh ann) Neurological: Normal speech Psych/Mental Status: Mental status NL - Labs Result Diagrams: 08/02/19 04:49 08/02/19 04:49 Lab results: Laboratory Results - last 24 hr 08/02/19 04:49: Uric Acid 3.2, Phosphorus 2.3 08/02/19 04:49: Sodium 136, Potassium 4.5, Chloride 102, Carbon Dioxide 29, Anion Gap 10, BUN 18, Creatinine 0.90, Estimated GFR (MDRD) 59, Glucose 109, Calcium 8.8, Magnesium 1.7, Total Bilirubin 0.6, AST 13, ALT 67 H, Alkaline Phosphatase 177 H, Serum Total Protein 4.9 L, Albumin 3.0 L, Globulin 1.9 L, Albumin/Globulin Ratio 1.6 08/02/19 04:49: WBC 0.4 L*, RBC 3.99 L, Hgb 12.4, Hct 36.6, MCV 91.7, MCH 31.0, MCHC 33.9, RDW 12.4, Plt Count 61 L, MPV 10.2, Neutrophils # Not Reportable, Lymphocytes # Not Reportable 08/02/19 04:49: Lactate Dehydrogenase 161 A/P - Problem (1) TRU (acute kidney injury) Current Visit: Yes Code(s): N17.9 - ACUTE KIDNEY FAILURE, UNSPECIFIED Status : Resolved (2) B-cell lymphoma Current Visit: Yes Code(s): C85.10 - UNSPECIFIED B-CELL LYMPHOMA, UNSPECIFIED SITE Status: Acute Qualifiers: B-cell lymphoma type: diffuse large B-cell (3) Tumor lysis syndrome Current Visit: Yes Code(s): E88.3 - TUMOR LYSIS SYNDROME Status: Resolved (4) Neutropenia Current Visit: Yes Code(s): D70.9 - NEUTROPENIA, UNSPECIFIED Status: Acute (5) HTN (hypertension) Current Visit: Yes Code(s): I10 - ESSENTIAL (PRIMARY) HYPERTENSION Status: Chronic Qualifiers: Hypertension type: essential hypertension Qualified Code(s): I10 - Essential (primary) hypertension - Plan Plan: 1. consult Dr. Gannon for BP control 2. start cipro for prophylaxis 3. consider repeat echo prior to d/c 4. rehab when appropriate 4. she received neulasta last week, WBC should recover soon
[2019-08-02] MEDS ORDERED: Isosorbide Mononitrate (ER) 30 MG TAB PO SCH (09:00)
[2019-08-02] MEDS: Docusate 100 MG CAP PO SCH ×2 (09:23→20:26)
[2019-08-02] MEDS: Polyethylene Glycol 3350 17 GM Packet PO SCH (09:24)
[2019-08-02] MEDS ORDERED: Minoxidil 2.5 MG TAB PO SCH (09:45)
[2019-08-02] MEDS: Enoxaparin Sodium 30 MG/0.3 ML SYRINGE SC SCH (10:14)
--- NOTE | 2019-08-02 11:24 | PDOC.HOSPP ---
- Subjective Encounter Date: 08/02/19 Encounter Time: 10:40 Subjective: awake, no sob or chest pain feels weak - Objective Vital Signs & Weight: Vital Signs (12 hours) Temp Pulse Resp BP Pulse Ox 08/02/19 08:00 97.7 F 91 16 178/84 H 98 Weight Admit Weight 130 lb Weight 130 lb I&O: 08/01/19 08/02/19 08/03/19 06:59 06:59 06:59 Intake Total 730 1365 Output Total 40 20 Balance 690 1345 Result Diagrams: 08/02/19 04:49 08/02/19 04:49 Hospitalist ROS - Medication Medications: Active Medications Generic Name Dose Route Start Last Admin Trade Name Freq PRN Reason Stop Dose Admin Acetaminophen 650 mg 07/28/19 20:53 08/01/19 02:31 Tylenol PO 650 mg Q4H PRN Administration Headache/Fever/Mild Pain (1-3) Hydrocodone Bitart/Acetaminophen 1 tab 07/28/19 20:53 08/02/19 03:10 [place] 5/325 PO 1 tab Q4H PRN Administration Moderate Pain (4-6) Bisacodyl 10 mg 07/28/19 20:53 07/31/19 08:37 Dulcolax PO 10 mg DAILYPRN PRN Administration Constipation Clonidine 0.1 mg 07/28/19 20:57 08/01/19 03:50 Catapres PO 0.1 mg Q4H PRN Administration SBP > 160 use second Docusate Sodium 100 mg 07/31/19 21:00 08/02/19 09:23 Colace PO 100 mg BID BRIDGER Administration Enoxaparin Sodium 30 mg 07/30/19 09:00 08/02/19 10:14 Lovenox SC 30 mg 0900 BRIDGER Administration Gabapentin 100 mg 07/28/19 21:00 08/01/19 20:00 Neurontin PO Not Given HS BRIDGER Isosorbide Mononitrate 60 mg 08/02/19 09:45 08/02/19 10:13 Imdur PO 08/02/19 11:45 60 mg NOW BRIDGER Administration Lorazepam 0.5 mg 07/28/19 21:00 08/01/19 20:00 Ativan PO 0.5 mg QPM BRIDGER Administration Minoxidil 2.5 mg 08/02/19 09:45 08/02/19 10:14 Minoxidil PO 08/02/19 11:45 2.5 mg NOW BRIDGER Administration Pantoprazole Sodium 40 mg 07/29/19 09:00 08/02/19 09:23 Protonix PO 40 mg DAILY BRIDGER Administration Polyethylene Glycol 17 gm 07/29/19 09:00 08/02/19 09:24 Miralax PO 17 gm DAILY BRIDGER Administration Sodium Chloride 10 ml 08/01/19 09:00 08/02/19 09:24 Flush - Normal Saline IVF 10 ml Q12HR BRIDGER Administration Temazepam 15 mg 07/28/19 21:03 07/31/19 19:24 Restoril PO 15 mg HSPRN PRN Administration Insomnia - Exam General Appearance: awake alert Eye: PERRL, anicteric sclera ENT: no oropharyngeal lesions, moist mucosa Neck: supple, no JVD Heart: RRR, no murmur Respiratory: no wheezes, no rales Respiratory - other findings: very minimal fluid in the per cut pericardial cath Gastrointestinal: soft, non-tender, non-distended, normal bowel sounds Extremities: no cyanosis, no clubbing Neurological: cranial nerve grossly intact, no focal deficits Psychiatric: normal affect, A&O x 3 Hosp A/P (1) Tumor lysis syndrome Code(s): E88.3 - TUMOR LYSIS SYNDROME Status: Resolved (2) B-cell lymphoma Code(s): C85.10 - UNSPECIFIED B-CELL LYMPHOMA, UNSPECIFIED SITE Status: Acute Qualifiers: B-cell lymphoma type: diffuse large B-cell (3) TRU (acute kidney injury) Code(s): N17.9 - ACUTE KIDNEY FAILURE, UNSPECIFIED Status: Resolved (4) HTN (hypertension) Code(s): I10 - ESSENTIAL (PRIMARY) HYPERTENSION Status: Chronic Qualifiers: Hypertension type: essential hypertension Qualified Code(s): I10 - Essential (primary) hypertension - Plan recieved 1 dose rasburicase 07/28/2019, uric acid down to 2 from 15 leucopenia sec to chemo, recieved neulasta last week, await bm response. renal function is normal she is passing clear urine to mobilize as tolerated continue clonidine prn, imdur, minoxidil, neurontin, protonix and morphine prn d/w , echo to see if pericardial effusion has resolved, if so will have the cath removed. hemostable spinal fluid cytology shows no obvious malignant cells but flow cytometry is pending dc plan per onc adv to rehab, has been accepted, await bed and clearance from specialists.
[2019-08-02] MEDS: cloNIDine 0.1 MG TAB PO PRN (14:24)
[2019-08-02] MEDS ORDERED: hydrALAZINE 20 MG/ML VIAL SLOW IVP SCH (17:45)
[2019-08-02] MEDS: Acetaminophen 325 MG TAB PO PRN (18:00)
[2019-08-02] MEDS: Cipro 250 MG TAB PO SCH (20:25)
[2019-08-02] MEDS: Lorazepam 0.5 MG TAB PO SCH (20:25)
[2019-08-02] MEDS: Gabapentin 100 MG CAP PO SCH (20:25)
[2019-08-03 04:59] LABS: ALT (SGPT) 50 U/L (8-55); AST (SGOT) 11 U/L (5-34); Alkaline Phosphatase 174 U/L (40-110); Anion Gap 13 mmol/L (10-20); BUN (Urea Nitrogen) 23 mg/dL (9.8-20.1); Bilirubin, Total 0.8 mg/dL (0.2-1.2); Calc. Creatinine Clearance 26 mL/min (70-130); Calcium 9.4 mg/dL (7.8-10.44); Carbon Dioxide 24 mmol/L (23-31); Chloride 100 mmol/L (98-107); Estimated GFR-MDRD 35; Glucose 127 mg/dL (83-110); Magnesium 1.6 mg/dL (1.6-2.6); Potassium 4.9 mmol/L (3.5-5.1); Sodium 132 mmol/L (136-145)
[2019-08-03 05:00] LABS: Phosphorus 3.2 mg/dL (2.3-4.7); Uric Acid 4.7 mg/dL (2.6-6.0)
[2019-08-03] MEDS: Cipro 250 MG TAB PO SCH (06:00)
[2019-08-03 07:11] LABS: Band 35 % (5-11); Eosinophils 2 % (0-10); Hemoglobin 12.6 g/dL (12.0-16.0); Lymphocytes 22 % (21-51); MDiff Complete? YES; Mean Corpuscular HGB CONC 35.9 g/dL (32.0-36.0); Mean Corpuscular Hemoglobin 32.3 pg (27.0-31.0); Mean Corpuscular Volume 89.9 fL (78.0-98.0); Mean Platelet Volume 10.4 fL (7.4-10.4); Metamyelocyte 7 % (0-0); Monocytes 25 % (0-10); Myelocyte 3 % (0-0); Neutrophil 6 % (42-75); Nucleated RBC 1 % (0); Platelet Count 73 thou/uL (130-400); Platelet Morphology Comment Appears Decreased; Polychromasia SLIGHT = 2-3 cells (100X) (0-2/hpf); RBC Distribution Width 12.3 % (11.5-14.5); Reactive Lymphocytes 5 % (0-10); Toxic Granulation SLIGHT; White Blood Cell (WBC) Count 1.9 thou/uL (4.8-10.8)
--- NOTE | 2019-08-03 08:59 | PDOC.MOPN ---
Interval History: nausea and emesis x 1 yesterday, low grade fever. Hallucinated last night - Vital Signs Vital Signs: Vital Signs (12 hours) Temp Pulse Resp BP Pulse Ox 08/03/19 08:00 97.6 F 98 16 118/56 L 98 08/03/19 03:34 98.5 F 99 16 113/56 L 98 08/02/19 23:39 99.4 F 105 H 16 111/51 L 97 Weight Admit Weight 130 lb Weight 130 lb - Physical Exam General: Alert, Oriented x3, No acute distress HEENT: Atraumatic, PERRLA, EOMI, Mucous membr. moist/pink Lungs: Clear to auscultation, Normal air movement Cardiovascular: Regular rate, Normal S1, Normal S2, No murmurs, Gallops, Rubs Abdomen: Normal bowel sounds, Soft, No tenderness, No hepatospenomegaly, No masses Extremities: No clubbing, No cyanosis, No edema, Normal pulses, No tenderness/ swelling Skin: No rashes, No breakdown, No significant lesion Neurological: Normal gait, Normal speech, Strength at 5/5 X4 ext, Normal tone, Sensation intact, Cranial nerves 3-12 NL, Reflexes 2+ Psych/Mental Status: Mental status NL, Mood NL - Labs Result Diagrams: 08/03/19 04:20 08/03/19 04:20 Lab results: Laboratory Results - last 24 hr 08/03/19 04:20: Uric Acid 4.7, Phosphorus 3.2 08/03/19 04:20: Sodium 132 L, Potassium 4.9, Chloride 100, Carbon Dioxide 24, Anion Gap 13, BUN 23 H, Creatinine 1.41 H, Estimated GFR (MDRD) 35, Glucose 127 H, Calcium 9.4, Magnesium 1.6, Total Bilirubin 0.8, AST 11, ALT 50, Alkaline Phosphatase 174 H, Serum Total Protein 5.0 L, Albumin 3.0 L, Globulin 2.0 L, Albumin/Globulin Ratio 1.5 08/03/19 04:20: WBC 1.9 L, RBC 3.90 L, Hgb 12.6, Hct 35.0 L, MCV 89.9, MCH 32.3 H, MCHC 35.9, RDW 12.3, Plt Count 73 L, MPV 10.4, Neutrophils % (Manual) 6 L, Band Neuts % (Manual) 35 H, Lymphocytes % (Manual) 22, Reactive Lymphs % 5, Monocytes % (Manual) 25 H, Eosinophils % (Manual) 2, Metamyelocytes % (Man) 7 H , Myelocytes % 3 H, Nucleated RBCs # (Man) 1 H, Toxic Granulation SLIGHT, Plt Morphology Comment Appears Decreased L, Polychromasia SLIGHT = 2-3 cells 08/03/19 04:20: Lactate Dehydrogenase 158 08/02/19 04:49: Neutrophils % (Manual) Not Reportable Status: lab reviewed by me A/P - Problem (1) B-cell lymphoma Current Visit: Yes Code(s): C85.10 - UNSPECIFIED B-CELL LYMPHOMA, UNSPECIFIED SITE Status: Acute Qualifiers: B-cell lymphoma type: diffuse large B-cell (2) Tumor lysis syndrome Current Visit: Yes Code(s): E88.3 - TUMOR LYSIS SYNDROME Status: Resolved (3) Neutropenia Current Visit: Yes Code(s): D70.9 - NEUTROPENIA, UNSPECIFIED Status: Acute - Plan Plan: 1. neutropenic precautions. ANC improved and likely normal tomorrow. She recd neulasta after chemo 2. DC phenergan. Add zofran prn 3. BP management per Dr. Walden 4. Continue cipro 5. Hopefully, rehab tomorrow
[2019-08-03] MEDS ORDERED: Ondansetron PF 4 MG/2 ML Vial IVP SCH (09:00)
[2019-08-03] MEDS ORDERED: Minoxidil 10 MG TAB PO SCH ×2 (09:00)
[2019-08-03] MEDS ORDERED: Minoxidil 2.5 MG TAB PO SCH ×2 (09:00→09:15)
[2019-08-03] MEDS ORDERED: Ondansetron HCl/PF 8 MG in Sodium Chloride 0.9% 50 ML IVPB SCH (09:00)
[2019-08-03] MEDS: Docusate 100 MG CAP PO SCH (09:07)
[2019-08-03] MEDS: Polyethylene Glycol 3350 17 GM Packet PO SCH (09:09)
[2019-08-03] MEDS ORDERED: Ondansetron PF 4 MG/2 ML Vial IVP PRN (09:11)
[2019-08-03] MEDS ORDERED: Milk Of Magnesia 30 ML UDCUP PO PRN (09:16)
[2019-08-03] MEDS: Enoxaparin Sodium 30 MG/0.3 ML SYRINGE SC SCH (09:49)
[2019-08-03] MEDS ORDERED: Fleet Enema 133 ML BOT FS SCH (11:15)
--- NOTE | 2019-08-03 11:25 | PDOC.HOSPP ---
- Subjective Encounter Date: 08/03/19 Encounter Time: 11:15 Subjective: awake, not in distress daughter at bedside - Objective Vital Signs & Weight: Vital Signs (12 hours) Temp Pulse Resp BP Pulse Ox 08/03/19 08:00 97.6 F 98 16 118/56 L 98 08/03/19 03:34 98.5 F 99 16 113/56 L 98 08/02/19 23:39 99.4 F 105 H 16 111/51 L 97 Weight Admit Weight 130 lb Weight 130 lb I&O: 08/02/19 08/03/19 08/04/19 06:59 06:59 06:59 Intake Total 1365 420 Output Total 20 113 Balance 1345 307 Result Diagrams: 08/03/19 04:20 08/03/19 04:20 Hospitalist ROS - Medication Medications: Active Medications Generic Name Dose Route Start Last Admin Trade Name Freq PRN Reason Stop Dose Admin Acetaminophen 650 mg 07/28/19 20:53 08/02/19 18:00 Tylenol PO 650 mg Q4H PRN Administration Headache/Fever/Mild Pain (1-3) Hydrocodone Bitart/Acetaminophen 1 tab 07/28/19 20:53 08/02/19 20:26 [place] 5/325 PO 1 tab Q4H PRN Administration Moderate Pain (4-6) Bisacodyl 10 mg 07/28/19 20:53 07/31/19 08:37 Dulcolax PO 10 mg DAILYPRN PRN Administration Constipation Bisacodyl 10 mg 07/28/19 20:53 08/03/19 09:49 Dulcolax [place] 10 mg DAILYPRN PRN Administration Constipation Ciprofloxacin 250 mg 08/02/19 20:00 08/03/19 06:00 Cipro PO 08/08/19 20:01 250 mg BID@0600,2000 BRIDGER Administration Clonidine 0.1 mg 07/28/19 20:57 08/02/19 14:24 Catapres PO 0.1 mg Q4H PRN Administration SBP > 160 use second Docusate Sodium 100 mg 07/31/19 21:00 08/03/19 09:07 Colace PO 100 mg BID BRIDGER Administration Enoxaparin Sodium 30 mg 07/30/19 09:00 08/03/19 09:49 Lovenox SC Not Given 0900 BRIDGER Gabapentin 100 mg 07/28/19 21:00 08/02/19 20:25 Neurontin PO Not Given HS BRIDGER Isosorbide Mononitrate 60 mg 08/03/19 09:00 08/03/19 09:07 Imdur PO 60 mg DAILY BRIDGER Administration Lorazepam 0.5 mg 07/28/19 21:00 08/02/19 20:25 Ativan PO Not Given QPM BRIDGER Pantoprazole Sodium 40 mg 07/29/19 09:00 08/03/19 09:09 Protonix PO 40 mg DAILY BRIDGER Administration Polyethylene Glycol 17 gm 07/29/19 09:00 08/03/19 09:09 Miralax PO 17 gm DAILY BRIDGER Administration Sodium Chloride 10 ml 08/01/19 09:00 08/03/19 09:09 Flush - Normal Saline IVF 10 ml Q12HR BRIDGER Administration Temazepam 15 mg 07/28/19 21:03 07/31/19 19:24 Restoril PO 15 mg HSPRN PRN Administration Insomnia - Exam General Appearance: awake alert Eye: PERRL, anicteric sclera ENT: no oropharyngeal lesions, moist mucosa Neck: supple, no JVD Heart: RRR, no murmur Respiratory: no wheezes, no rales Gastrointestinal: soft, non-tender, non-distended, normal bowel sounds Extremities: no cyanosis, no edema Neurological: cranial nerve grossly intact, no focal deficits Hosp A/P (1) Tumor lysis syndrome Code(s): E88.3 - TUMOR LYSIS SYNDROME Status: Resolved (2) B-cell lymphoma Code(s): C85.10 - UNSPECIFIED B-CELL LYMPHOMA, UNSPECIFIED SITE Status: Acute Qualifiers: B-cell lymphoma type: diffuse large B-cell (3) TRU (acute kidney injury) Code(s): N17.9 - ACUTE KIDNEY FAILURE, UNSPECIFIED Status: Resolved (4) HTN (hypertension) Code(s): I10 - ESSENTIAL (PRIMARY) HYPERTENSION Status: Chronic Qualifiers: Hypertension type: essential hypertension Qualified Code(s): I10 - Essential (primary) hypertension - Plan recieved 1 dose rasburicase 07/28/2019, uric acid down to 2 from 15 leucopenia sec to chemo, recieved neulasta last week, her BM is responding wbc is 1.9 this am. renal function is normal she is passing clear urine to mobilize as tolerated continue clonidine tts, imdur, minoxidil, neurontin, protonix and morphine prn echo there is no pericardial effusion. She will have mediport and pericardial cath removal as outpt. hemostable spinal fluid cytology shows no obvious malignant cells but flow cytometry is pending dc plan per onc adv to rehab, has been accepted and d/w daughter at bedside
[2019-08-03 12:57] VITALS: TEMP 97.8
[2019-08-03 15:52] VITALS: BP 113/55
--- NOTE | 2019-08-03 18:43 | DIS ---
DATE OF ADMISSION: 07/28/2019 DATE OF DISCHARGE: 08/03/2019 DISCHARGE DISPOSITION: Inpatient rehab. PRIMARY DISCHARGE DIAGNOSES: 1. Tumor lysis syndrome, resolved. 2. Acute kidney injury on arrival, resolved. 3. 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 4. Hypertension. PROCEDURES DONE DURING HOSPITALIZATION: The patient has had lumbar puncture done with histopathology showing polymorphous lymphoid population, but no evidence of large B-cell lymphoma as such now. A flow cytometry on this specimen is pending. Echo with 2D Doppler done, showed no evidence of pericardial effusion. Her EF was 60% to 65%. There was diastolic dysfunction. Initial white count was 22 with discharge numbers of 1.9; H and H 12 and 36; platelet count is 205, and on discharge, it is 73. Discharge BUN and creatinine are 23 and 1.4; albumin is 3.0; LDH is 158; uric acid less than 2 on the day of discharge, and on admission, it was 15; admitting BUN and creatinine were 42 and 1.3. Flow cytometry on the CSF sample was done, which reveals kappa monoclonal B-cell population. DISCHARGE MEDICATIONS: 1. Clonidine 0.2 mg transdermal patch once weekly. 2. Minoxidil 2.5 mg p.o. daily. 3. Imdur 60 mg p.o. daily. 4. Temazepam 15 mg p.o. q.p.m. p.r.n. 5. Ciprofloxacin 250 mg twice daily for another 6 days. 6. Hydrocodone p.r.n. 7. Prolia 60 mg IM every 6 months. 8. Protonix 40 mg p.o. daily. 9. MiraLAX 17 g daily. ALLERGIES: ALLERGIC TO AMLODIPINE AND METOPROLOL. INPATIENT CONSULT: Dr. Mcgee for Oncology. DISCHARGE PLAN: The patient is to follow up with Dr. Mcgee as advised. She needs to follow up with Dr. Micky Buckley in 1 week; her primary care physician, Dr. Walden, on the 15 November at 2 p.m. BRIEF COURSE DURING HOSPITALIZATION: The patient initially was sent over from Dr. Mcgee's office after she was found to have had a uric acid of 15 with acute kidney injury and recent chemotherapy for large B-cell lymphoma. The patient was asked to continue allopurinol, which the patient did not do so. She was given a dose of rasburicase and her uric acid has been trending down to less than 2 from then on. She was gently hydrated during her stay here. Her renal function has come back to baseline. Prior to discharge, she is ambulating with physical therapy. Due to deconditioning, she is being discharged to inpatient rehab prior to going home. 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 Initial histopathology done, did not reveal involvement of the spine, but flow cytometry shows kappa monoclonal B-cell population, which has just arrived. The results will be reviewed by Dr. Mcgee to help with further chemotherapy treatments toward her B-cell lymphoma as the family is willing to proceed. She likely might need radiation as well. Please see a [id number] documentation for the day of discharge on [facility]. A total of 35 minutes was spent on discharge plan. Job ID: [id number] MTDD
[2019-08-04] MEDS ORDERED: Minoxidil 2.5 MG TAB PO SCH (09:00)
[2019-08-05] MEDS ORDERED: cloNIDine 0.2mg/24 Hour PATCH TD SCH (12:00)
== END 2019-08-03 15:55 | DRG 683 ==
LOC: ONC 17:15
PROVIDERS: ADMIT Internal Medicine Hematology & Oncology; ATTEND Internal Medicine Hematology & Oncology
PROC: 009U3ZX Drainage of Spinal Canal, Percutaneous Approach, Diagnostic (ICD-10-PCS; principal; 2019-07-29)
PROC: B01B1ZZ Fluoroscopy of Spinal Cord using Low Osmolar Contrast (ICD-10-PCS; 2019-07-29)
DX: E88.3 Tumor lysis syndrome (principal); C85.10 Unspecified B-cell lymphoma, unspecified site; I31.3 Pericardial effusion (noninflammatory); I10 Essential (primary) hypertension; E21.3 Hyperparathyroidism, unspecified; E87.70 Fluid overload, unspecified; N17.9 Acute kidney failure, unspecified; D70.9 Neutropenia, unspecified; F41.9 Anxiety disorder, unspecified; Z88.8 Allergy status to other drugs, medicaments and biological substances; Z90.710 Acquired absence of both cervix and uterus
CPT/HCPCS: 36415; 62270; 80053; 82248; 83615; 83735; 84100; 84550; 85025; 88112; 88184; 93306; J0360; J1650; J1940; J2783; J7512